=== PATIENT | female | born 1945 | race Caucasian/White ===

== ENCOUNTER → 2016-11-10 | Outpatient (CLI) | payer MEDICARE ==
--- NOTE | 2016-11-10 11:20 | MM ---
Reason for exam: additional evaluation requested from prior study. Last mammogram was performed 1 year ago. History: Patient is postmenopausal. Family history of breast cancer in daughter at age 38 and breast cancer in mother at age 70. Benign MG stereo VAD BX LT of the left breast, June 02, 2014. US discontinued breast bx LT of the left breast, June 02, 2014. Excisional biopsy of the right breast, 1996. Benign cyst aspiration of the left breast. Benign cyst aspiration of the right breast. Took hormonal contraceptives for 9 years beginning at age 21. Physical Findings: Nurse did not find any significant physical abnormalities on exam. MG 3D Diag Mammo W/Cad LINDA Bilateral CC and MLO view(s) were taken. Prior study comparison: November 05, 2015, bilateral MG 3d diag mammo w/cad LINDA. May 26, 2014, bilateral MG diagnostic mammo w CAD LINDA. The breast tissue is heterogeneously dense. This may lower the sensitivity of mammography. Finding: There are stable typically benign calcifications in both breasts. Previous mammotome biopsy in the left breast. No significant changes in finding since November 05, 2015 and May 26, 2014. These results were verbally communicated with the patient and result sheet given to the patient on 11/10/16. ASSESSMENT: Benign, BI-RAD 2 RECOMMENDATION: Routine screening mammogram of both breasts in 1 year.
== END | disposition home or self-care (01) ==
LOC: RADMAMWWP 08:13
PROVIDERS: ATTEND Surgery
DX: R92.2 Inconclusive mammogram (principal); Z80.3 Family history of malignant neoplasm of breast
CPT/HCPCS: G0204; G0279

== ENCOUNTER → 2016-11-10 | Outpatient (CLI) | payer MEDICARE ==
--- NOTE | 2016-11-10 16:32 | ECHOF ---
Referral Reason:I35. nonrtheumatic aortic valve stenosis MEASUREMENTS -------- HEIGHT: 157.5 cm WEIGHT: 83.9 kg BP: RVIDd: 2.3 cm (< 3.3) IVSd: 1.4 cm (0.6 - 1.1) LVIDd: 4.7 cm (3.9 - 5.3) LVPWd: 1.4 cm (0.6 - 1.1) IVSs: 1.7 cm LVIDs: 2.6 cm LVPWs: 1.7 cm LAESV Index (A-L): 30.81 ml/m Ao Diam: 3.0 cm (2.0 - 3.7) AV Cusp: 1.2 cm (1.5 - 2.6) LA Diam: 3.9 cm (2.7 - 3.8) MV EXCURSION: 11.800 mm (> 18.000) MV EF SLOPE: 41 mm/s (70 - 150) EPSS: 0.8 cm MV E Travis: 0.85 m/s MV DecT: 465 ms MV A Travis: 1.31 m/s MV E/A Ratio: 0.65 AV maxP.72 mmHg AV meanP.36 mmHg RAP: 5.00 mmHg RVSP: 21.17 mmHg FINDINGS -------- Sinus rhythm. This was a technically adequate study. There is moderate concentric left ventricular hypertrophy. Overall left ventricular systolic function is normal with, an EF between 60 - 65 %. The right ventricle is normal in size and function. LA is midly dilated 29-33ml/m2. The right atrium is normal in size. Aortic valve is trileaflet and is moderately thickened. Trace amount of aortic regurgitation. There is moderate aortic stenosis present. Peak/mean gradient across the Aortic Valve is 34.72mmHg / 20.36mmHg. Mild mitral annular calcification present. There is trace to mild mitral regurgitation. Trace tricuspid regurgitation present. There is no evidence of pulmonary hypertension. The right ventricular systolic pressure, as measured by Doppler, is 21.17mmHg. The pulmonic valve is normal. The aortic root size is normal. IVC Not well visulized. The pericardium is normal. There is no pericardial effusion. CONCLUSIONS -------- 1. Sinus rhythm. 2. There is trace to mild mitral regurgitation. 3. Trace tricuspid regurgitation present. 4. There is no evidence of pulmonary hypertension. 5. The right ventricular systolic pressure, as measured by Doppler, is 21.17mmHg. 6. The aortic root size is normal. 7. IVC Not well visulized. 8. There is no pericardial effusion. 9. This was a technically adequate study. 10. There is moderate concentric left ventricular hypertrophy. 11. Overall left ventricular systolic function is normal with, an EF between 60 - 65 %. 12. LA is midly dilated 29-33ml/m2. 13. Aortic valve is trileaflet and is moderately thickened. 14. Trace amount of aortic regurgitation. 15. Peak/mean gradient across the Aortic Valve is 34.72mmHg / 20.36mmHg. 16. Mild mitral annular calcification present. LITHOGRAPHIC PLATE MAKER: Maximiliano Kirkland RDCS
== END | disposition home or self-care (01) ==
LOC: RADECHMAIN 13:02
PROVIDERS: ATTEND Internal Medicine
DX: I34.0 Nonrheumatic mitral (valve) insufficiency (principal); I35.9 Nonrheumatic aortic valve disorder, unspecified
CPT/HCPCS: 93306

== ENCOUNTER → 2017-11-11 | Outpatient (CLI) | payer MEDICARE ==
--- NOTE | 2017-11-12 11:13 | MM ---
Reason for exam: additional evaluation requested from prior study. Last mammogram was performed 1 year ago. History: Patient is postmenopausal. Family history of breast cancer in daughter at age 38 and breast cancer in mother at age 70. Benign MG stereo VAD BX LT of the left breast, June 02, 2014. US discontinued breast bx LT of the left breast, June 02, 2014. Excisional biopsy of the right breast, 1996. Benign cyst aspiration of the left breast. Benign cyst aspiration of the right breast. Took hormonal contraceptives for 9 years beginning at age 21. Physical Findings: Nurse Summary: 1 x 1cm/0.5 x 1cm nodule in the right breast at 1 o'clock/11 o'clock (nurse ts). MG 3D Diag Mammo W/Cad LINDA Bilateral CC and MLO view(s) were taken. Prior study comparison: November 10, 2016, bilateral MG 3d diag mammo w/cad LINDA. November 05, 2015, bilateral MG 3d diag mammo w/cad LINAD. The breast tissue is heterogeneously dense. This may lower the sensitivity of mammography. There is chronic nodularity bilaterally. 2.4 x 2.0cm masses 11 and 1 o'clock slightly larger. Overlying palpable markers. A 1.2cm mass upper outer quadrant left breast has enlarged. These results were verbally communicated with the patient and result sheet given to the patient on 11/11/17. ASSESSMENT: Incomplete: need additional imaging evaluation, BI-RAD 0 RECOMMENDATION: Ultrasound of both breasts. Right entire. Left upper outer quadrant.
--- NOTE | 2017-11-12 11:15 | USB ---
Reason for exam: additional evaluation requested from abnormal screening. History: Patient is postmenopausal. Family history of breast cancer in daughter at age 38 and breast cancer in mother at age 70. Benign MG stereo VAD BX LT of the left breast, June 02, 2014. US discontinued breast bx LT of the left breast, June 02, 2014. Excisional biopsy of the right breast, 1996. Benign cyst aspiration of the left breast. Benign cyst aspiration of the right breast. Took hormonal contraceptives for 9 years beginning at age 21. US Breast Limited BILAT Right complete breast ultrasound includes all four quadrants, the retroareolar region and axilla. Finding demonstrates a 1.8 x 1.4 x 1.2cm cystic, palpable, benign lesion at 12 o'clock, a 1.8 x 1.4 x 1.2cm cystic lesion at 1 o'clock and a 1.6 x 1.6 x 1.1cm cystic, palpable, benign lesion at 10 o'clock. Left limited breast ultrasound including focal area of concern, retroareolar and axilla demonstrates a 1.2 x 0.6 x 0.6cm cystic lesion at 12 o'clock. These results were verbally communicated with the patient and result sheet given to the patient on 11/11/17. ASSESSMENT: Benign, BI-RAD 2 RECOMMENDATION: Follow-up diagnostic mammogram of both breasts in 1 year.
== END | disposition home or self-care (01) ==
LOC: RADMAMWWP 14:40
PROVIDERS: ATTEND Internal Medicine
DX: R92.8 Other abnormal and inconclusive findings on diagnostic imaging of breast (principal); Z80.3 Family history of malignant neoplasm of breast
CPT/HCPCS: 77066; 76642; G0279; 77062

== ENCOUNTER → 2017-11-16 | Outpatient (CLI) | payer MEDICARE ==
--- NOTE | 2017-11-17 10:34 | ECHOF ---
Referral Reason:I35.0 Nonrheumatic aortic (valve) stenosis MEASUREMENTS -------- HEIGHT: 157.5 cm WEIGHT: 83.9 kg BP: 179/79 RVIDd: 2.7 cm (< 3.3) IVSd: 1.3 cm (0.6 - 1.1) LVIDd: 4.2 cm (3.9 - 5.3) LVPWd: 1.1 cm (0.6 - 1.1) IVSs: 1.6 cm LVIDs: 2.7 cm LVPWs: 1.5 cm LA Diam: 2.7 cm (2.7 - 3.8) LAESV Index (A-L): 17.32 ml/m Ao Diam: 3.1 cm (2.0 - 3.7) AV Cusp: 1.6 cm (1.5 - 2.6) MV EXCURSION: 12.690 mm (> 18.000) MV EF SLOPE: 24 mm/s (70 - 150) EPSS: 0.7 cm MV E Travis: 1.01 m/s MV DecT: 272 ms MV A Travis: 1.26 m/s MV E/A Ratio: 0.80 AV maxP.01 mmHg AV meanP.35 mmHg FINDINGS -------- Sinus rhythm. This was a technically good study. The left ventricular size is normal. There is mild concentric left ventricular hypertrophy. Overa ll left ventricular systolic function is normal with, an EF between 60 - 65 %. The right ventricle is normal in size. Normal LA size by volume 22+/-6 ml/m2. The right atrium is normal in size. There is mild aortic valve sclerosis. There is mild aortic regurgitation. There is moderate aorti c stenosis present. Peak/mean gradient across the Aortic Valve is 42.01mmHg / 22.35mmHg. The mitral valve leaflets are mildly thickened. Mild mitral annular calcification present. The tricuspid valve appears structurally normal. Trace/mild (physiologic) pulmonic regurgitation. The aortic root size is normal. Normal inferior vena cava with normal inspiratory collapse consistent with estimated right atrial pre ssure of 5 mmHg. There is no pericardial effusion. CONCLUSIONS -------- 1. Sinus rhythm. 2. This was a technically good study. 3. The left ventricular size is normal. 4. There is mild concentric left ventricular hypertrophy. 5. Overall left ventricular systolic function is normal with, an EF between 60 - 65 %. 6. The right ventricle is normal in size. 7. Normal LA size by volume 22+/-6 ml/m2. 8. The right atrium is normal in size. 9. There is mild aortic valve sclerosis. 10. There is mild aortic regurgitation. 11. There is moderate aortic stenosis present. 12. Peak/mean gradient across the Aortic Valve is 42.01mmHg / 22.35mmHg. 13. The mitral valve leaflets are mildly thickened. 14. Mild mitral annular calcification present. 15. The tricuspid valve appears structurally normal. 16. Trace/mild (physiologic) pulmonic regurgitation. 17. The aortic root size is normal. 18. Normal inferior vena cava with normal inspiratory collapse consistent with estimated right atrial pressure of 5 mmHg. 19. There is no pericardial effusion. BATTERY CHECKER: Genna Logan RDCS
== END | disposition home or self-care (01) ==
LOC: RADECHMAIN 12:45
PROVIDERS: ATTEND Internal Medicine
DX: I35.0 Nonrheumatic aortic (valve) stenosis (principal); I35.8 Other nonrheumatic aortic valve disorders; I37.1 Nonrheumatic pulmonary valve insufficiency; I05.8 Other rheumatic mitral valve diseases
CPT/HCPCS: 93306

== ENCOUNTER → 2018-11-24 | Outpatient (CLI) | payer MEDICARE ==
--- NOTE | 2018-11-25 12:00 | ECHOF ---
Referral Reason:I35.0 Nonrheumatic aortic (valve) stenosis MEASUREMENTS -------- HEIGHT: 160.0 cm WEIGHT: 86.2 kg BP: RVIDd: 3.7 cm (< 3.3) IVSd: 1.9 cm (0.6 - 1.1) LVIDd: 2.8 cm (3.9 - 5.3) LVPWd: 1.9 cm (0.6 - 1.1) IVSs: 2.2 cm LVIDs: 1.7 cm LVPWs: 2.2 cm LAESV Index (A-L): 27.39 ml/m Ao Diam: 3.1 cm (2.0 - 3.7) AV Cusp: 1.0 cm (1.5 - 2.6) LA Diam: 3.9 cm (2.7 - 3.8) EPSS: 0.3 cm MV E Travis: 0.77 m/s MV DecT: 267 ms MV A Travis: 1.36 m/s MV E/A Ratio: 0.56 AV maxP.45 mmHg AV meanP.55 mmHg AR PHT: 426 ms RAP: 5.00 mmHg RVSP: 23.72 mmHg MV EF SLOPE: 72.30 mm/s (70 - 150) MV EXCURSION: 1.73 cm (> 18.000) FINDINGS -------- Sinus rhythm. This was a technically adequate study. The left ventricular size is normal. There is severe concentric left ventricular hypertrophy. Ove rall left ventricular systolic function is normal with, an EF between 60 - 65 %. The diastolic fill ing pattern is normal for the age of the patient. The right ventricle is mildly enlarged. Left atrium is normal size by volume. The right atrial size is normal. Interatrial and interventricular septum intact. There is [id number]-nafbhpnl aortic regurgitation. There is moderate aortic stenosis present. Peak/m krystin gradient across the valve is 40.45mmHg / 26.55mmHg. Moderate mitral annular calcification present. There is trace mitral regurgitation. Mild tricuspid regurgitation present. There is no evidence of pulmonary hypertension. The right v entricular systolic pressure, as measured by Doppler, is 23.72mmHg. Trace/mild (physiologic) pulmonic regurgitation. The aortic root size is normal. The inferior vena cava is mildly dilated. There is no pericardial effusion. CONCLUSIONS -------- 1. Sinus rhythm. 2. This was a technically adequate study. 3. The left ventricular size is normal. 4. There is severe concentric left ventricular hypertrophy. 5. Overall left ventricular systolic function is normal with, an EF between 60 - 65 %. 6. The diastolic filling pattern is normal for the age of the patient. 7. The right ventricle is mildly enlarged. 8. Left atrium is normal size by volume. 9. The right atrial size is normal. 10. Interatrial and interventricular septum intact. 11. There is yddw-fz-mmifcodv aortic regurgitation. 12. There is moderate aortic stenosis present. 13. Peak/mean gradient across the valve is 40.45mmHg / 26.55mmHg. 14. Moderate mitral annular calcification present. 15. There is trace mitral regurgitation. 16. Mild tricuspid regurgitation present. 17. There is no evidence of pulmonary hypertension. 18. The right ventricular systolic pressure, as measured by Doppler, is 23.72mmHg. 19. Trace/mild (physiologic) pulmonic regurgitation. 20. The aortic root size is normal. 21. The inferior vena cava is mildly dilated. 22. There is no pericardial effusion. DRAW FIRE OPERATOR: Kelly Mac [facility]
== END | disposition home or self-care (01) ==
LOC: RADECHMAIN 12:42
PROVIDERS: ATTEND Internal Medicine
DX: I08.2 Rheumatic disorders of both aortic and tricuspid valves (principal)
CPT/HCPCS: 93306

== ENCOUNTER → 2018-12-21 | Outpatient (CLI) | payer MEDICARE ==
--- NOTE | 2018-12-21 10:24 | MM ---
Reason for exam: additional evaluation requested from prior study. Last mammogram was performed 1 year and 1 month ago. History: Patient is postmenopausal. Family history of breast cancer in daughter at age 38 and breast cancer in mother at age 70. Benign MG stereo VAD BX LT of the left breast, June 02, 2014. US discontinued breast bx LT of the left breast, June 02, 2014. Excisional biopsy of the right breast, 1996. Benign cyst aspiration of the left breast. Benign cyst aspiration of the right breast. Took hormonal contraceptives for 9 years beginning at age 21. Physical Findings: Nurse did not find any significant physical abnormalities on exam. MG 3D Diag Mammo W/Cad LINDA Bilateral CC and MLO view(s) were taken. Prior study comparison: November 11, 2017, bilateral MG 3d diag mammo w/cad LINDA. November 10, 2016, bilateral MG 3d diag mammo w/cad LINDA. Finding: There are typically benign dystrophic, round, linear calcifications in both breasts. Previous mammotome biopsy in the left breast. There is a chronic nodularity bilaterally, some increased in size/appearance several levels bilaterally. These results were verbally communicated with the patient and result sheet given to the patient on 12/21/18. ASSESSMENT: Incomplete: need additional imaging evaluation, BI-RAD 0 RECOMMENDATION: Ultrasound of both breasts.
--- NOTE | 2018-12-21 10:31 | USB ---
Reason for exam: additional evaluation requested from abnormal screening. History: Patient is postmenopausal. Family history of breast cancer in daughter at age 38 and breast cancer in mother at age 70. Benign MG stereo VAD BX LT of the left breast, June 02, 2014. US discontinued breast bx LT of the left breast, June 02, 2014. Excisional biopsy of the right breast, 1996. Benign cyst aspiration of the left breast. Benign cyst aspiration of the right breast. Took hormonal contraceptives for 9 years beginning at age 21. US Breast BILAT Right complete breast ultrasound includes all four quadrants, the retroareolar region and axilla. Finding demonstrates a 8 x 5 x 16mm oval, cystic lesion at 3 o'clock, a 10 x 6 x 8mm oval, cystic lesion at 6 o'clock, a 8 x 7 x 11mm oval, cystic lesion at 7 o'clock, a 18 x 8 x 10mm irregular, solid, hypoechoic lesion at 10 o'clock for which a biopsy is advised and a 8 x 6 x 11mm lobular, solid, hypoechoic lesion at 5 o'clock for which a biopsy is considered. Left complete breast ultrasound includes all four quadrants, the retroareolar region and axilla. Finding demonstrates a 16 x 7 x 19mm lobular, cystic lesion at 12 o'clock, a 8 x 5 x 10mm lobular, mixed lesion at 3 o'clock, a 5 x 3 x 3mm mixed lesion at 9 o'clock and a 5 x 5 x 5mm hypoechoic lesion at 10 o'clock, probably debris filled cyst. Overall fibrocystic change. These results were verbally communicated with the patient and result sheet given to the patient on 12/21/18. ASSESSMENT: Suspicious, BI-RAD 4 RECOMMENDATION: Ultrasound core biopsy of the right breast. (1-2 sites) Called Dr. Mullen with mammographic findings. Biopsy scheduled for 01/12/19 at 12:20. PRELIMINARY REPORT CALLED AND FAXED TO DR. MULLEN ON 12/21/18.
--- NOTE | 2018-12-21 11:34 | BD ---
EXAMINATION TYPE: Axial Bone Density DATE OF EXAM: 12/21/2018 COMPARISON: 01.22.2016 DEXA bone scan CLINICAL HISTORY: 73 YR OLD FEMALE....ICD-10 CODE: Z78.0 POST MENOPAUSAL SYMPTOMS Height: 60.4 Weight: 197 FRAX RISK QUESTIONS: Glucocorticoids (More than 3mos): YES (Ex: prednisone, prednisolone, methylprednisolone, dexamethasone, and hydrocortisone). History of Fracture in Adulthood: YES Secondary Osteoporosis: YES 3. Menopause before 45: YES RISK FACTORS HISTORY OF: Hip Fracture RT HIP...WITH SUR Surgery to RT HIP...2016 Postmenopausal woman: HYST AT AGE 41 Lost more than 2 inches in height since high school: YES Hyperparathyroidism: NO Adrenal Insufficiency: NO MEDICATIONS: Prednisone or other steroids: ADVAIR, SINGULAIR, PREDNISONE, ASTHMA...FOR LONG TIME Additional Medications: BP MEDS, DIABETES INSIPITUS CALCIUM AND VIT D, TUMS Additional History: HYPERTENSION, RT HIP FX AND SURGICAL REPAIR, EXAM MEASUREMENTS: Bone mineral densitometry was performed using the [employer] [facility] System. Bone mineral density as measured about the Lumbar spine is: ----- L1-L4(G/cm2): 1.279 T Score Values are as follows: ----- L1: 0.2 ----- L2: -0.1 ----- L3: 2.0 ----- L4: 0.8 ----- L1-L4: 0.8 Bone mineral density has: Increased 15.8% since study of: 01.22.2016 Bone mineral density about the L hip (g/cm2): 0.800 T Score values are as follows: -----L Neck: -1.3 -----L Total: -1.7 Bone mineral density has: Increased 3.5% since study of: 01.22.2016 FRAX%s: THERE IS A 21.7% CHANCE FOR A MAJOR OSTEOPOROTIC FX AND A 3.3% FOR HIP....PROBABILITY FOR F X IN 10 YRS TIME IMPRESSION: Osteopenia (T Score between -2.5 and -1) in the left hip remains present. There remains slightly increased risk of fracture and the patient may be considered for treatment. Re-Screen 2-5 years. NOTE: T-SCORE=SD OF THE YOUNG ADULT MEAN.
== END | disposition home or self-care (01) ==
LOC: RADMAMWWP 08:00
PROVIDERS: ATTEND Internal Medicine
DX: N60.02 Solitary cyst of left breast (principal); N60.01 Solitary cyst of right breast; R92.8 Other abnormal and inconclusive findings on diagnostic imaging of breast; M85.88 Other specified disorders of bone density and structure, other site; Z78.0 Asymptomatic menopausal state
CPT/HCPCS: 77080; 77066; 76641; G0279; 77062

== ENCOUNTER → 2019-01-12 | Day surgery (SDC) | payer MEDICARE ==
[2019-01-12 11:40] VITALS: RESP 12
[2019-01-12 13:04] VITALS: BP 152/99; PULSE 83; TEMP 98.6
--- NOTE | 2019-01-12 13:41 | USB ---
EXAMINATION TYPE: US biopsy breast VAD RT, US biopsy breast add'l VAD RT, MG diagnostic mammo RT wo CAD DATE OF EXAM: 01/12/2019 CLINICAL HISTORY: R92.8 Abnormal Mammogram. TECHNIQUE: Ultrasound guided core biopsy of right breast. COMPARISON: 12/21/2018 breast ultrasound FINDINGS: The procedure of ultrasound guided core biopsy was explained to the patient. Benefits, alternatives, and risks were discussed. An informed consent was then obtained. Preprocedural timeout was performed. Site A: The patient was placed in supine positioning for imaging and for the procedure. The overlying skin was prepped and draped in usual sterile fashion. 10 cc of 1% lidocaine was used as anesthetic into the skin and subcutaneous tissue up to the 1.8 cm deep hypoechoic mass at the 10:00 position right breast. Under ultrasound guidance, a 12-gauge vacuum assisted biopsy gun device was used to obtain 6 core samples. Following this, a ribbon-shaped biopsy marker was left in mass. Site B: The patient was placed in supine positioning for imaging and for the procedure. The overlying skin was prepped and draped in usual sterile fashion. 10 cc of 1% lidocaine was used as anesthetic into the skin and subcutaneous tissue up to the 1.1 cm mass at the 5:00 position in the right. Under ultrasound guidance, a 12-gauge vacuum assisted biopsy gun device was used to obtain 4 core samples. Following this, a wing shaped biopsy marker was left in mass. Postprocedural mammogram demonstrates appropriate placement of the wing-shaped marker and visualization of the ribbon-shaped biopsy marker on the MLO view only despite obtaining an additional exaggerated CC. The patient tolerated the procedure well without any immediate complication. The patient was kept in the radiology department for short stay after the procedure and then discharged home in stable condition. IMPRESSION: Successful, uncomplicated 2 site ultrasound guided core biopsy of a 1.8 cm intermediate suspicion for at the 10:00 position in the right breast and a 1.1 cm low suspicion mass at the 5:00 position in the right breast, full pathology results to follow. Pathology Results: Benign A. RIGHT BREAST, TEN O'CLOCK, ULTRASOUND GUIDED CORE BIOPSY: Benign breast tissue with prominent stromal fibrosis. B. RIGHT BREAST, FIVE O'CLOCK, ULTRASOUND GUIDED CORE BIOPSY: Fibrocystic changes including sclerosing adenosis with calcifications, columnar cell change, cysts, fibrosis and mild usual type ductal hyperplasia. See note. Recommendation Follow up ultrasound of the right breast in 6 months. LEONELD
== END ==
LOC: RADUSWWP 11:19
PROVIDERS: ATTEND Internal Medicine
DX: N60.11 Diffuse cystic mastopathy of right breast (principal); N60.21 Fibroadenosis of right breast
CPT/HCPCS: 88305; 88342; 88341; 77065; 19083; 19084; A4648; J2001

== ENCOUNTER → 2019-11-22 | Outpatient (CLI) | payer MEDICARE ==
--- NOTE | 2019-11-22 12:12 | ECHOF ---
Referral Reason:I35.0 Nonhuematic valve stenosis, I51.7 cardiomega MEASUREMENTS -------- HEIGHT: 154.9 cm WEIGHT: 86.2 kg BP: 180/79 RVIDd: 3.1 cm (< 3.3) IVSd: 1.3 cm (0.6 - 1.1) LVIDd: 3.7 cm (3.9 - 5.3) LVPWd: 1.2 cm (0.6 - 1.1) IVSs: 1.6 cm LVIDs: 2.4 cm LVPWs: 1.6 cm LA Diam: 3.4 cm (2.7 - 3.8) LAESV Index (A-L): 19.46 ml/m Ao Diam: 2.9 cm (2.0 - 3.7) AV Cusp: 1.6 cm (1.5 - 2.6) MV EXCURSION: 14.577 mm (> 18.000) MV EF SLOPE: 25 mm/s (70 - 150) EPSS: 0.5 cm MV E Travis: 0.97 m/s MV DecT: 465 ms MV A Travis: 1.49 m/s MV E/A Ratio: 0.65 AV maxP.69 mmHg AV meanP.64 mmHg AR PHT: 661 ms RAP: 5.00 mmHg RVSP: 33.43 mmHg FINDINGS -------- Sinus rhythm. This was a technically good study. The left ventricular size is normal. There is mild concentric left ventricular hypertrophy. Overa left ventricular systolic function is normal with, an EF between 60 - 65 %. The right ventricle is normal in size. Normal LA size by volume 22+/-6 ml/m2. The right atrium is normal in size. Interatrial and interventricular septum intact. There is moderate aortic valve sclerosis. There is ocif-xe-tdfhelxn aortic regurgitation. There i s moderate aortic stenosis present. Peak/mean gradient across the Aortic Valve is 45.69mmHg / 24.64 mmHg. The mitral valve leaflets are mildly thickened. Mild mitral annular calcification present. Mild m itral regurgitation is present. The peak and mean MV gradients are 12.33mmHg 4.53mmHg as measured by doppler. Mild mitral stenosis. Mild tricuspid regurgitation present. Right ventricular systolic pressure is normal at < 35 mmHg. Trace/mild (physiologic) pulmonic regurgitation. The aortic root size is normal. Normal inferior vena cava with normal inspiratory collapse consistent with estimated right atrial pre ssure of 5 mmHg. There is no pericardial effusion. CONCLUSIONS -------- 1. The left ventricular size is normal. 2. There is mild concentric left ventricular hypertrophy. 3. Overall left ventricular systolic function is normal with, an EF between 60 - 65 %. 4. There is moderate aortic valve sclerosis. 5. There is qqeo-xw-qvhrzczd aortic regurgitation. 6. There is moderate aortic stenosis present. 7. Peak/mean gradient across the Aortic Valve is 45.69mmHg / 24.64mmHg. 8. The mitral valve leaflets are mildly thickened. 9. Mild mitral annular calcification present. 10. Mild mitral regurgitation is present. 11. The peak and mean MV gradients are 12.33mmHg 4.53mmHg as measured by doppler. 12. Mild mitral stenosis. 13. Mild tricuspid regurgitation present. 14. Trace/mild (physiologic) pulmonic regurgitation. 15. There is no pericardial effusion. TICKET TAKER: Genna Logan RDCS
== END | disposition home or self-care (01) ==
LOC: RADECHMAIN 08:30
PROVIDERS: ATTEND Internal Medicine
DX: I08.3 Combined rheumatic disorders of mitral, aortic and tricuspid valves (principal); I37.1 Nonrheumatic pulmonary valve insufficiency
CPT/HCPCS: 93306

== ENCOUNTER 2020-01-16 11:22 | Day surgery (SDC) | payer MEDICARE ==
[2020-01-12 14:34] VITALS: BMI 34.7
[2020-01-16] MEDS ORDERED: LACTATED RINGERS 1,000 ML IV ONE (11:41)
[2020-01-16 11:47] VITALS: TEMP 98.5
[2020-01-16] MEDS ORDERED: PROPOFOL 10 MG/ML 20 ML VIAL IV ONE (12:06)
--- NOTE | 2020-01-16 12:45 | P.PCN ---
Date of Procedure: 01/16/20 Description of Procedure: BRIEF HISTORY: Patient is a 74 -year-old female presenting for outpatient colonoscopy for evaluation of family history of colon cancer. Last colonoscopy 5 years ago per her recollection. No change in bowel habits or blood per rectum. PROCEDURE PERFORMED: Colonoscopy with polypectomy. PREOPERATIVE DIAGNOSIS: Family history of colon cancer, last colonoscopy 5 years ago. ESTIMATED BLOOD LOSS: Minimal. IV sedation per Anesthesia. PROCEDURE: After informed consent was obtained, the patient, was brought into the endoscopy unit. IV sedation was administered by Anesthesia under continuous monitoring. Digital rectal examination was normal. Initially the Olympus CF-190 flexible video colonoscope was then inserted in the rectum, gradually advanced into the cecum without any difficulty. Careful examination was performed as the scope was gradually being withdrawn. Ileocecal valve and the appendiceal orifice were visualized and appeared normal. Prep was excellent. Mucosa of the cecum, ascending colon, transverse colon, descending colon, sigmoid colon, and rectum appeared normal. Multiple small and large mouth diverticula noted in the left colon. 2 diminutive 2-3 mm cecal polyps removed with cold forcep polypectomy. Retroflexion was performed in the rectum and no lesions were seen. The patient tolerated the procedure well. IMPRESSION: 2 diminutive cecal polyps removed with cold forcep polypectomy. Moderate left colonic diverticulosis. RECOMMENDATIONS: Findings of this examination were discussed with the patient. Okay to resume diet. Okay to resume medications. Await pathology from polypectomy. Would recommend repeat colonoscopy in 5 years for family history of colon cancer.
[2020-01-16 13:12] VITALS: PULSE 85; RESP 16
[2020-01-16 13:13] VITALS: BP 137/82
== END 2020-01-16 13:21 | disposition home or self-care (01) ==
LOC: ORWHC2ENDO 11:22
PROVIDERS: ATTEND Internal Medicine
DX: Z12.11 Encounter for screening for malignant neoplasm of colon (principal); K63.5 Polyp of colon; K57.30 Diverticulosis of large intestine without perforation or abscess without bleeding; I10 Essential (primary) hypertension; J45.909 Unspecified asthma, uncomplicated; Z90.710 Acquired absence of both cervix and uterus; Z98.51 Tubal ligation status; Z98.890 Other specified postprocedural states; Z80.0 Family history of malignant neoplasm of digestive organs; Z79.82 Long term (current) use of aspirin; Z79.899 Other long term (current) drug therapy; Z91.09 Other allergy status, other than to drugs and biological substances
CPT/HCPCS: 88305; 45380; J2704

== ENCOUNTER → 2020-02-07 | Outpatient (CLI) | payer MEDICARE ==
--- NOTE | 2020-02-07 09:11 | MM ---
Reason for exam: additional evaluation requested from prior study. Last mammogram was performed 1 year and 1 month ago. History: Patient is postmenopausal. Family history of breast cancer in daughter at age 38 and breast cancer in mother at age 70. Benign US biopsy breast VAD RT of the right breast, January 12, 2019. Benign US biopsy breast add'l VAD RT of the right breast, January 12, 2019. Benign MG stereo VAD BX LT of the left breast, June 02, 2014. US discontinued breast bx LT of the left breast, June 02, 2014. Excisional biopsy of the right breast, 1996. Benign cyst aspiration of the left breast. Benign cyst aspiration of the right breast. Took hormonal contraceptives for 9 years beginning at age 21. Physical Findings: Nurse did not find any significant physical abnormalities on exam. MG 3D Diag Mammo W/Cad LINDA Bilateral CC and MLO view(s) were taken. Prior study comparison: January 12, 2019, right breast MG diagnostic mammo RT wo CAD. December 21, 2018, bilateral MG 3d diag mammo w/cad LINDA. The breast tissue is heterogeneously dense. This may lower the sensitivity of mammography. Previous mammotome biopsy in the right and left breast. Scattered calcifications are unchanged. Bilateral nodularity, some of which has decreased in size, some of which has increased. These results were verbally communicated with the patient and result sheet given to the patient on 02/07/20. ASSESSMENT: Incomplete: need additional imaging evaluation, BI-RAD 0 RECOMMENDATION: Ultrasound of both breasts.
--- NOTE | 2020-02-07 09:13 | USB ---
Reason for exam: additional evaluation requested from abnormal screening. History: Patient is postmenopausal. Family history of breast cancer in daughter at age 38 and breast cancer in mother at age 70. Benign US biopsy breast VAD RT of the right breast, January 12, 2019. Benign US biopsy breast add'l VAD RT of the right breast, January 12, 2019. Benign MG stereo VAD BX LT of the left breast, June 02, 2014. US discontinued breast bx LT of the left breast, June 02, 2014. Excisional biopsy of the right breast, 1996. Benign cyst aspiration of the left breast. Benign cyst aspiration of the right breast. Took hormonal contraceptives for 9 years beginning at age 21. US Breast BILAT Right complete breast ultrasound includes all four quadrants, the retroareolar region and axilla. Finding demonstrates a 11 x 7 x 10mm cystic lesion at 12 o'clock and a 7 x 4 x 9mm hypoechoic lesion at 4 o'clock versus 12 x 9 x 5mm on 01/12/19, benign. Left complete breast ultrasound includes all four quadrants, the retroareolar region and axilla. Finding demonstrates a 13 x 7 x 10mm cystic lesion at 12 o'clock, a 13 x 10 x 15mm cystic lesion at 1 o'clock and a 4 x 4 x 4mm mixed lesion at 9 o'clock, cyst with debris, benign. These results were verbally communicated with the patient and result sheet given to the patient on 02/07/20. ASSESSMENT: Probably benign, BI-RAD 3 RECOMMENDATION: Follow-up diagnostic mammogram of both breasts in 1 year.
== END | disposition home or self-care (01) ==
LOC: RADMAMWWP 07:28
PROVIDERS: ATTEND Internal Medicine
DX: R92.8 Other abnormal and inconclusive findings on diagnostic imaging of breast (principal); Z85.3 Personal history of malignant neoplasm of breast
CPT/HCPCS: 77066; 76641; G0279; 77062

== ENCOUNTER → 2021-01-03 | Outpatient (CLI) | payer MEDICARE ==
--- NOTE | 2021-01-03 18:32 | BD ---
EXAMINATION TYPE: Axial Bone Density DATE OF EXAM: 01/03/2021 COMPARISON: 2019 CLINICAL HISTORY: Postmenopausal screening Height: 61 Weight: 194.1 FRAX RISK QUESTIONS: Alcohol (3 or more units per day): no Family History (Parent hip fracture): no Glucocorticoids (More than 3mos): no (Ex: prednisone, prednisolone, methylprednisolone, dexamethasone, and hydrocortisone). History of Fracture in Adulthood: yes Secondary Osteoporosis: 1. Type 1 Diabetes: no 2. Hyperthyroidism: no 3. Menopause before 45: yes 4. Malnutrition: no 5. Chronic liver disease: no Rheumatoid Arthritis: no Current Tobacco Use: no RISK FACTORS HISTORY OF: Hip Fracture (Right/Left): right When: 2016 Surgery to Spine/Hip(right/left)/Wrist (right/left): right femur When: 2016 Family History of Osteoporosis: no Active: yes Diet low in dairy products/other sources of calcium: yes Postmenopausal woman: yes Lost more than 2 inches in height since high school: yes MEDICATIONS: Additional History: EXAM MEASUREMENTS: Bone mineral densitometry was performed using the [employer] System. Bone mineral density as measured about the Lumbar spine is: ----- L1-L4(G/cm2): 1.235 T Score Values are as follows: ----- L2: 1.0 ----- L3: 0.2 ----- L4: 0.3 ----- L1-L4: 0.5 Bone mineral density has: decreased -5.0 % since study of: 12.21.2018 Bone mineral density about the L hip (g/cm2): 0.890 T Score values are as follows: -----L Neck: -1.1 -----L Total: -1.1 Bone mineral density has: increased 8.4 % since study of: 12.21.2018 IMPRESSION: Osteopenia (T Score between -2.5 and -1). There is slightly increased risk of fracture and the patient may be considered for treatment. Re-Screen 2-5 years. NOTE: T-SCORE=SD OF THE YOUNG ADULT MEAN.
== END | disposition home or self-care (01) ==
LOC: RADBDWWP 09:21
PROVIDERS: ATTEND Internal Medicine
DX: M85.852 Other specified disorders of bone density and structure, left thigh (principal); Z78.0 Asymptomatic menopausal state
CPT/HCPCS: 77080

== ENCOUNTER → 2021-01-09 | Outpatient (CLI) | payer MEDICARE ==
--- NOTE | 2021-01-10 17:02 | ECHOF ---
Referral Reason:I35.0 Nonrheumatic aortic valve stenosis MEASUREMENTS -------- HEIGHT: 154.9 cm WEIGHT: 88.0 kg BP: RVIDd: 3.2 cm (< 3.3) IVSd: 1.5 cm (0.6 - 1.1) LVIDd: 3.3 cm (3.9 - 5.3) LVPWd: 1.8 cm (0.6 - 1.1) IVSs: 1.9 cm LVIDs: 1.8 cm LVPWs: 2.3 cm LAESV Index (A-L): 34.80 ml/m MV EXCURSION: 14.703 mm (> 18.000) MV EF SLOPE: 52 mm/s (70 - 150) EPSS: 0.3 cm MV E Travis: 1.26 m/s MV DecT: 363 ms MV A Travis: 1.64 m/s MV E/A Ratio: 0.77 AV maxP.30 mmHg AV meanP.04 mmHg AR PHT: 335 ms RAP: 5.00 mmHg RVSP: 34.01 mmHg FINDINGS -------- Sinus rhythm. This was a technically adequate study. The left ventricular size is normal. There is moderate concentric left ventricular hypertrophy. O verall left ventricular systolic function is normal with, an EF between 55 - 60 %. Left ventricular fillimg pressure cannot be estimated due to severe mitral annular calcification. The right ventricle is normal in size. LA is moderately dilated 34-39 ml/m2 The right atrial size is normal. Interatrial and interventricular septum intact. There is mild aortic regurgitation. There is amefcunp-qr-zaimtu aortic stenosis present. Severe mitral annular calcification present. Mild mitral regurgitation is present. Woao-yi-mrdnuk te mitral stenosis , with a MVA of 2.0cm (by PHT) Mild tricuspid regurgitation present. There is no evidence of pulmonary hypertension. The right v entricular systolic pressure, as measured by Doppler, is 34.01mmHg. There is no pulmonic regurgitation present. The aortic root size is normal. IVC Not well visulized. There is no pericardial effusion. CONCLUSIONS -------- 1. The left ventricular size is normal. 2. There is moderate concentric left ventricular hypertrophy. 3. Overall left ventricular systolic function is normal with, an EF between 55 - 60 %. 4. Left ventricular fillimg pressure cannot be estimated due to severe mitral annular calcification. 5. LA is moderately dilated 34-39 ml/m2 6. There is mild aortic regurgitation. 7. There is isqqocqj-aa-ahaarh aortic stenosis present. 8. Severe mitral annular calcification present. 9. Mild mitral regurgitation is present. 10. Qluv-ob-zdpnrvat mitral stenosis. 11. , with a MVA of 2.0cm (by PHT) 12. Mild tricuspid regurgitation present. GROUP PROGRAM MANAGER: Kelly Mac RDCS
== END | disposition home or self-care (01) ==
LOC: RADECHMAIN 14:28
PROVIDERS: ATTEND Internal Medicine
DX: I35.0 Nonrheumatic aortic (valve) stenosis (principal)
CPT/HCPCS: 93306

== ENCOUNTER → 2021-02-20 | Outpatient (CLI) | payer MEDICARE ==
--- NOTE | 2021-02-20 09:16 | MM ---
Reason for exam: additional evaluation requested from prior study. Last mammogram was performed 1 year ago. History: Patient is postmenopausal. Family history of breast cancer in daughter at age 38 and breast cancer in mother at age 70. Benign US biopsy breast VAD RT of the right breast, January 12, 2019. Benign US biopsy breast add'l VAD RT of the right breast, January 12, 2019. Benign MG stereo VAD BX LT of the left breast, June 02, 2014. US discontinued breast bx LT of the left breast, June 02, 2014. Excisional biopsy of the right breast, 1996. Benign cyst aspiration of the left breast. Benign cyst aspiration of the right breast. Took hormonal contraceptives for 9 years beginning at age 21. Physical Findings: Nurse did not find any significant physical abnormalities on exam. MG 3D Diag Mammo W/Cad LINDA Bilateral CC and MLO view(s) were taken. Prior study comparison: February 07, 2020, bilateral MG 3d diag mammo w/cad LINDA. January 12, 2019, right breast MG diagnostic mammo RT wo CAD. November 11, 2017, bilateral MG 3d diag mammo w/cad LINDA. The breast tissue is heterogeneously dense. This may lower the sensitivity of mammography. Previous mammotome biopsy in the left and right breast x 2. Fluctuating nodularity most of which is smaller. Bilateral calcifications are similar. Continued follow up recommended in 1 year. These results were verbally communicated with the patient and result sheet given to the patient on 02/20/21. ASSESSMENT: Probably benign, BI-RAD 3 RECOMMENDATION: Follow-up diagnostic mammogram of both breasts in 1 year.
== END ==
LOC: RADMAMWWP 07:35
PROVIDERS: ATTEND Internal Medicine
DX: R92.2 Inconclusive mammogram (principal); Z80.3 Family history of malignant neoplasm of breast
CPT/HCPCS: 77066; G0279; 77062

== ENCOUNTER → 2022-03-24 | Outpatient (CLI) | payer MEDICARE ==
--- NOTE | 2022-03-24 10:50 | MM ---
Reason for Exam: Additional evaluation requested from prior study. Last mammogram was performed 1 year(s) and 1 month(s) ago. Patient History: Menarche at age 13. First Full-Term at age 25. Hysterectomy at age 41. Postmenopausal. Hormonal Contraceptives for 9 years from age 21 until age 30. Benign Cyst Aspiration on the right side. Benign Cyst Aspiration on the left side. 1996, Excisional Biopsy on the Right side. 01/12/2019, Benign Core Biopsy on the right side. 01/12/2019, Benign Core Biopsy on the right side. 06/02/2014, Benign Core Biopsy on the left side. 06/02/2014, US discontinued breast bx LT on the left side. Daughter had breast cancer, age 38. Mother had breast cancer, age 70. Risk Values: Zeinab 5 year model risk: 10.5%. NCI Lifetime model risk: 21.2%. Prior Study Comparison: 12/21/2018 Bilateral Diagnostic Mammogram, [facility]. 01/12/2019 Right Diagnostic Mammogram, [facility]. 02/07/2020 Bilateral Diagnostic Mammogram, [facility]. 02/20/2021 Bilateral Diagnostic Mammogram, [facility]. Tissue Density: The breast tissue is heterogeneously dense. This may lower the sensitivity of mammography. Findings: Analyzed By CAD. Scattered and loosely grouped calcifications bilaterally are redemonstrated. There are biopsy clips in the bilateral breasts again seen. Circumscribed masses near 1.0 cm bilaterally are grossly unchanged from prior mammograms on background dense tissue . No suspicious new distortion or worrisome group of microcalcification bilaterally. Overall Assessment: Benign, BI-RAD 2 Management: Screening Mammogram of both breasts in 1 year. A clinical breast exam by your physician is recommended on an annual basis and results should be correlated with mammographic findings. This exam should not preclude additional follow-up of suspicious palpable abnormalities. Results were given to the patient verbally at the time of exam. Electronically signed and approved by: Jose Antonio Camacho M.D.
== END | disposition home or self-care (01) ==
LOC: RADMAMWWP 10:14
PROVIDERS: ATTEND Family Medicine
DX: R92.8 Other abnormal and inconclusive findings on diagnostic imaging of breast (principal); Z78.0 Asymptomatic menopausal state; Z80.3 Family history of malignant neoplasm of breast
CPT/HCPCS: 77066; G0279; 77062

== ENCOUNTER → 2022-03-25 | Outpatient (CLI) | payer MEDICARE ==
[2022-03-25 14:29] LABS: HCT 33.4 % (37.2-46.3); HGB 10.7 g/dL (12.0-15.0); MCH 29.4 pg (27.0-32.0); MCV 91.8 fL (80.0-97.0); Mean Platelet Volume 10.3 fL (9.5-12.2); NRBC Per 100 WBC 0 /100 WBCS (0.0-0.0); Platelet Count 268 X 10*3/uL (140-440); RBC 3.64 X 10*6/uL (4.10-5.20); WBC 7.01 X 10*3/uL (4.50-10.00)
[2022-03-25 14:58] LABS: African American GFR (CKD) 83.6 (60.0-200.0); Anion Gap 11.4 mmol/L (10.00-18.00); Blood Urea Nitrogen 8.5 mg/dL (9.0-27.0); Carbon Dioxide 22.6 mmol/L (20.0-27.5); Non-African American GFR(CKD) 72.1 (60.0-200.0); Potassium 4.3 mmol/L (3.5-5.5)
== END | disposition home or self-care (01) ==
LOC: LABPAT 10:27
PROVIDERS: ATTEND Internal Medicine Interventional Cardiology
DX: Z01.812 Encounter for preprocedural laboratory examination (principal); I35.0 Nonrheumatic aortic (valve) stenosis
CPT/HCPCS: 80051; 82565; 84520; 85027

== ENCOUNTER 2022-04-04 07:17 | Day surgery (SDC) | payer MEDICARE ==
[~2022-04-04 07:17] MED LIST: ALPRAZolam 0.25 MG TAB PO PRN; ALPRAZolam 0.5 MG TAB PO PRN; ASPIRIN 325 MG TAB PO STA; ATORVASTATIN 80 MG TAB PO STA; HEPARIN SODIUM,PORCINE 10,000 UNIT in SODIUM CHLORIDE 0.9% 1,000 ML IRRIGATION PRN; HEPARIN SODIUM,PORCINE 2,500 UNIT in SODIUM CHLORIDE 0.9% 250 ML IRRIGATION PRN; NITROGLYCERIN SL TABS 0.4 MG TAB SUBLINGUAL PRN; SODIUM CHLORIDE 0.9% 1,000 ML in EMPTY BAG 1 BAG IV SCH
[2022-04-04 07:49] VITALS: RESP 18; TEMP 98.5
[2022-04-04] MEDS ORDERED: fentaNYL (PF) 50 MCG/ML 2 ML AMP ONE (08:37)
[2022-04-04] MEDS: BENZOCAINE SPRAY 1 CAN MUCOUS MEM ONE ×2 (08:44→08:58)
[2022-04-04] MEDS ORDERED: IV FLUID CONTINUATION 1,000 ML IV ONE (08:45)
[2022-04-04] MEDS ORDERED: MIDAZOLAM 2 MG/2 ML VIAL IV ONE ×2 (08:58→11:22)
[2022-04-04] MEDS ORDERED: fentaNYL (PF) 50 MCG/ML 2 ML AMP IV ONE (08:58)
[2022-04-04] MEDS: MIDAZOLAM 2 MG/2 ML VIAL IV ONE ×2 (09:01→09:03)
--- NOTE | 2022-04-04 09:26 | P.PCN ---
Date of Procedure: 04/04/22 Operative Findings: TRANSESOPHAGEAL ECHOCARDIOGRAM PHARMACY OPERATIONS SPECIALIST: KEYANA GARNER MD, RPVI INDICATION: This is a 76-year-old female patient who sees Dr. Bennett irregularly was diagnosis and he was aortic stenosis. The transesophageal echocardiogram for further clarification of the severity of aortic stenosis and the morphology of the aortic valve as well. SEDATION: Conscious sedation COMPLICATION: None LEVEL OF SEDATION Moderate to sedation length of 12 minutes PROCEDURE DESCRIPTION: After obtaining an informed consent, the patient was brought to transesophageal echocardiogram room. Pulse oximetry and heart monitors were attached to the patient. The patient throat was sprayed using lidocaine. The patient was turned into left lateral position. After that a bite guard was placed. After an appropriate conscious sedation was initiated, the transesophageal echocardiogram was advanced through a bite guard into the mid esophagus. A 2-D echocardiogram images, color Doppler images, continuous wave images, pulse-wave images, of various cardiac structure were performed. After that the transesophageal echocardiogram probe was advanced into the stomach and fixed to obtain transgastric view was. The probe was brought into the mid esophagus. Inter-atrial septum was interrogated using 2D images, color Doppler images, and then contrast study. After that transesophageal echocardiogram was withdrawn out and upon withdrawing the descending thoracic aorta all the way up to the arch was evaluated. FINDING: The left ventricular dimension and systolic function appeared to be within normal limits. Ejection fraction appears to be in the range of 55-60% with mild concentric left ventricular hypertrophy. The right ventricle appeared to be mildly dilated with normal function. The left atrium appears to be dilated. Left atrial appendage appeared to be free from any thrombus. The interatrial septum appeared to be intact. The aortic valve is very thickened and calcified and appeared to be trileaflet valve with evidence of severe aortic stenosis with a mean gradient of 44 mmHg by transgastric view and peak gradient of 87 mmHg. The peak systolic velocities definitely above 4 m/s. The mitral valve appeared to be also mildly thickened with evidence of moderate mitral regurgitation. There is no evidence of pericardial effusion identified. CONCLUSION: 1. Trileaflet aortic valve with evidence of aortic sclerosis and severe aortic stenosis. The mean gradient is 44 mmHg. Peak systolic velocity is above 4 m/s. The aortic valve area by planimetry is 0.5 cm 2. Normal left ventricular dimension and systolic function. There is mild concentric left ventricular hypertrophy. The LV EF is 55-60% 3. Thickened anterior and posterior mitral leaflets was evidence of moderate mitral regurgitation 4. Normal right ventricular dimension and systolic function 5. Normal tricuspid valve and pulmonic valve 6. No evidence of pericardial effusion
[2022-04-04] MEDS ORDERED: LIDOCAINE 1% INJ 10MG/ML (5 ML VIAL-PF) SQ ONE (11:24)
[2022-04-04] MEDS ORDERED: HEPARIN SODIUM 1,000 UN/ML (10ML VL) IV ONE (11:27)
[2022-04-04] MEDS ORDERED: VERAPAMIL SYRINGE (5 MG/10 ML) INTRAARTER ONE (11:27)
[2022-04-04] MEDS ORDERED: IOPAMIDOL-370 100ML BTL INJ ONE (11:40)
[2022-04-04] MEDS ORDERED: SODIUM CHLORIDE 0.9% 1,000 ML IV SCH (12:00)
[2022-04-04] MEDS ORDERED: SODIUM CHLORIDE 0.9% 500 ML 500 ML IV ONE (14:00)
[2022-04-04 15:36] VITALS: BP 132/86; PULSE 74
--- NOTE | 2022-04-04 16:01 | CC ---
CARDIAC CATHETERIZATION REPORT DATE OF SERVICE: 04/04/2022. PROCEDURES PERFORMED: Left heart catheterization and coronary angiography. PERFORMED BY: Dr. Migdalia Bennett. Moderate conscious sedation time was 20 minutes. The patient was administered Versed. Oxygen saturation, hemodynamics, and EKG were monitored closely. CLINICAL INFORMATION: Ms. Sabina Rayo is a 76-year-old lady with a history of aortic stenosis that has progressively gotten worse. She has hypertension, hyperlipidemia, and bronchial asthma. She has been having increasing shortness of breath and echo revealing worsening gradient with preserved LV function. There was also moderate pulmonary hypertension. She was advised coronary angiography and transesophageal echo. Transesophageal echo revealed severe aortic stenosis. PROCEDURE NOTE: Under local anesthesia and strict aseptic precautions, a 6-[place] introducer was placed in the right radial artery. Using JL3.5 and JR4 catheters, I performed coronary angiography, and the same right catheter was used to cross the valve, and I checked LV pressures with a pullback gradient. The patient tolerated the procedure well without complication. A TR band was applied, and saturation in the fingers of the right hand was 94%. Moderate conscious sedation time was 20 minutes. CARDIAC CATHETERIZATION FINDINGS: The left ventricular end-diastolic pressure was about 11 to 12 mmHg. There was a gradient of 33 mmHg, which is a mean gradient on pullback. This suggests a severe aortic stenosis. CORONARY ANGIOGRAPHY FINDINGS: RIGHT CORONARY ARTERY: This is a large vessel, good caliber, good distribution, minor irregularities, distally bifurcates into PDA and PLV. No significant disease. LEFT MAIN CORONARY ARTERY: A very short vessel, immediately bifurcates into LAD and circumflex. No significant disease. LEFT ANTERIOR DESCENDING CORONARY ARTERY: Good-caliber vessel, extends along the anterior wall, gives off diagonal branch in the mid portion and several small septal branches, runs all the way to the apex, has no significant disease. Distal LAD has mild tapering to about 30% to 40% LEFT POSTERIOR CIRCUMFLEX CORONARY ARTERY: Technically nondominant vessel, good caliber, good distribution, gives a single obtuse marginal that subdivides into 3 branches, and then there is an AV groove branch. No significant disease in the circumflex system. FINAL IMPRESSION: This patient has a right-dominant system. No significant disease in the right coronary artery or circumflex. Mild diffuse disease in the distal left anterior descending. Mean gradient of 33 mmHg based on a pullback measurement. End-diastolic pressure is 10 to 12 mmHg. RECOMMENDATIONS: I am recommending percutaneous aortic valve replacement, and the patient will be seen in the [facility]. MMYASMIN / ZAIRA: [id number] /
== END 2022-04-04 15:50 | disposition home or self-care (01) ==
LOC: CATHCVL 07:17
PROVIDERS: ATTEND Internal Medicine Interventional Cardiology
DX: I35.0 Nonrheumatic aortic (valve) stenosis (principal); I27.20 Pulmonary hypertension, unspecified; E78.5 Hyperlipidemia, unspecified; I10 Essential (primary) hypertension; J45.909 Unspecified asthma, uncomplicated; Z82.49 Family history of ischemic heart disease and other diseases of the circulatory system; Z79.899 Other long term (current) drug therapy
CPT/HCPCS: 93312; 93320; 93325; 93458; C1769 ×2; C1894; J2250; J2001; J3010; J1644; Q9967

== ENCOUNTER → 2022-04-17 | Outpatient (CLI) | payer MEDICARE ==
[2022-04-17 10:27] LABS: Basophils % (A) 1 %; Eosinophils # (A) 0.2 k/uL (0-0.7); Eosinophils % (A) 3 %; HCT 35.7 % (34.0-46.0); Lymphocytes # (A) 1.3 k/uL (1.0-4.8); Lymphocytes % (A) 21 %; MCH 30.1 pg (25.0-35.0); MCHC 33.6 g/dL (31.0-37.0); MCV 89.6 fL (80.0-100.0); Mean Platelet Volume 8.1; Monocytes # (A) 0.2 k/uL (0-1.0); Monocytes % (A) 4 %; Neutrophils # (A) 4.4 k/uL (1.3-7.7); Neutrophils % (A) 70 %; Platelet Count 270 k/uL (150-450); RBC 3.98 m/uL (3.80-5.40); RDW 13.4 % (11.5-15.5); WBC 6.3 k/uL (3.8-10.6)
[2022-04-17 10:32] LABS: Partial Thromboplastin Time 26.1 sec (22.0-30.0); Prothrombin Time 10.5 sec (9.0-12.0)
[2022-04-17 11:28] LABS: ALT 24 U/L (4-34); AST 24 U/L (14-36); African American GFR (CKD) >90 (>60 ml/min/1.73 sqM); Albumin 4.3 g/dL (3.5-5.0); Albumin/Globulin Ratio 1.4; Alkaline Phosphatase 59 U/L (38-126); Anion Gap 9 mmol/L; Blood Urea Nitrogen 11 mg/dL (7-17); Calcium 9.5 mg/dL (8.4-10.2); Carbon Dioxide 26 mmol/L (22-30); Chloride 108 mmol/L (98-107); Glucose 149 mg/dL (74-99); Magnesium 2.1 mg/dL (1.6-2.3); Non-African American GFR(CKD) 83 (>60 ml/min/1.73 sqM); Potassium 4.1 mmol/L (3.5-5.1); Sodium 143 mmol/L (137-145); Total Bilirubin 0.3 mg/dL (0.2-1.3); Total Protein 7.3 g/dL (6.3-8.2)
[2022-04-17 11:46] LABS: Appearance,Urine Clear (Clear); Bilirubin,Urine Negative (Negative); Blood,Urine Negative (Negative); Color,Urine Light Yellow; Glucose,Urine (UA) Negative (Negative); Ketones,Urine Negative (Negative); Leukocyte Esterase,Urine Small (Negative); Mucus,Urine Rare /hpf; Nitrite,Urine Negative (Negative); PH, Urine 7.5 (5.0-8.0); Protein,Urine Negative (Negative); Specific Gravity,Urine 1.006 (1.001-1.035); Squamous Epithelial Cell,Urine 1 /hpf (0-4); Urobilinogen,Urine <2.0 mg/dL (<2.0); WBC,Urine 5 /hpf (0-5)
--- NOTE | 2022-04-17 12:47 | US ---
EXAMINATION TYPE: US carotid duplex BILAT DATE OF EXAM: 04/17/2022 COMPARISON: CLINICAL HISTORY: I35.1 NONRHEUMATIC AORTIC (VALVE) INSUFFICIENCY. No HTN. Pre OP. TECHNIQUE: Carotid duplex ultrasound examination. Indirect Doppler criteria was utilized. FINDINGS: EXAM MEASUREMENTS: RIGHT: Peak Systolic Velocity (PSV) cm/sec ----- Right CCA: 59.1 ----- Right ICA: 98.1 ----- Right ECA: 118.0 ICA/CCA ratio: 1.7 RIGHT: End Diastole cm/sec ----- Right CCA: 33.8 ----- Right ICA: 29.2 ----- Right ECA: 14.8 LEFT: Peak Systolic Velocity (PSV) cm/sec ----- Left CCA: 68.9 ----- Left ICA: 118.0 ----- Left ECA: 119.0 ICA/CCA ratio: 1.7 LEFT: End Diastole cm/sec ----- Left CCA: 16.0 ----- Left ICA: 37.7 ----- Left ECA: 10.4 VERTEBRALS (direction of flow): Right Vertebral: Antegrade Left Vertebral: Antegrade Rhythm: Arrhythmia RN OBGYN NOTES: No elevated velocities or plaque visualized. No significant stenosis. IMPRESSION: 1. No hemodynamically significant stenosis. 2. Cardiac dysrhythmia Criteria for Assigning % of Stenosis / Diameter reduction (Estimation based on the indirect measurements of the internal carotid artery velocities (ICA PSV). 1. Normal (no stenosis)=ICA PSV < 125 cm/s: ratio < 2.0: ICA EDV<40 cm/s. 2. Less than 50% stenosis=ICA PSV < 125 cm/s: ratio < 2.0: ICA EDV<40 cm/s. 3. 50 to 69% stenosis=ICA PSV of 125 to 230 cm/s: ration 2.0 ? 4.0: ICA EDV 40-100 cm/s. 4. Greater than 70% stenosis to near occlusion= ICA PSV > 230 cm/s: ratio > 4.0: ICA EDV > 100 cm/s. 5. Near occlusion= ICA PSV velocities may be low or undetectable: variable ratio and ICA EDV. 6. Total occlusion=unable to detect flow.
--- NOTE | 2022-04-17 14:06 | CT ---
EXAMINATION TYPE: CT TAVR Planning DATE OF EXAM: 04/17/2022 HISTORY: TAVR planning CT DLP: 2509.40 mGycm Automated Exposure Control for Dose Reduction was Utilized. CONTRAST: CT scan of the chest, abdomen and pelvis is performed with IV Contrast, patient injected with 125 mL of Isovue 370. COMPARISON: None. TECHNIQUE: Helical imaging obtained through the chest, abdomen and pelvis during arterial phase rhianna yandy administration of radiographic contrast intravenously. FINDINGS: See report from [facility] regarding preprocedural planning CHEST: Lower Neck and Thyroid: No significant findings Lungs: Focal small hernia defect in the posterior medial right lung base sagittal image 64 series 16. Central Airway: No significant findings Pleura: No significant findings Pulmonary Arteries: No significant findings Heart and Pericardium: Calcifications and thickening involving the mitral and aortic valves is seen. Lymph Nodes: No significant findings Mediastinum & Esophagus: No significant findings Other findings: Single calcification right breast axial image 53 ABDOMEN/PELVIS: Please note arterial phase of the imaging limits detailed evaluation of the solid abdominal organs. Liver: No significant findings Spleen: No significant findings Kidneys: No significant findings Adrenal Glands: No significant findings Pancreas: No significant findings Gallbladder: No significant findings Bowel and Mesentery: Prominent diffuse colonic diverticulosis is identified. No convincing CT evidenc e for acute diverticulitis. Lymph Nodes: No significant findings Urinary Bladder: No significant findings Pelvic Organs: Uterus surgically absent. Osseous structures: S-shaped scoliotic curvature. Multilevel spurring in the spine. Exaggerated lumba r lordosis. Facet arthropathy lower lumbar levels. Metallic hardware from right hip surgery causes st reak artifact somewhat limiting evaluation of pelvic structures. Moderate to severe narrowing and spu rring in the left hip joint is present. Other: None IMPRESSION: No significant incidental findings identified.
[2022-04-17 16:04] LABS: Hepatitis A Antibody IgM Nonreactive (Nonreactive); Hepatitis B Core IgM Nonreactive (Nonreactive); Hepatitis B Surface Antigen Nonreactive (Nonreactive); Hepatitis C IgG Antibody Nonreactive (Nonreactive)
[2022-04-17 23:31] LABS: LDL Cholesterol,Calculated 67.4 mg/dL (0.0-131.0)
== END | disposition home or self-care (01) ==
LOC: LABWHC1 08:57
PROVIDERS: ATTEND Thoracic Surgery (Cardiothoracic Vascular Surgery)
DX: Z01.818 Encounter for other preprocedural examination (principal); I35.0 Nonrheumatic aortic (valve) stenosis; E87.8 Other disorders of electrolyte and fluid balance, not elsewhere classified; Z79.899 Other long term (current) drug therapy; R58 Hemorrhage, not elsewhere classified; E07.9 Disorder of thyroid, unspecified; R35.0 Frequency of micturition; Z79.01 Long term (current) use of anticoagulants; E11.9 Type 2 diabetes mellitus without complications; N28.9 Disorder of kidney and ureter, unspecified; E78.5 Hyperlipidemia, unspecified; I35.1 Nonrheumatic aortic (valve) insufficiency
CPT/HCPCS: 94150; 83880; 80061; 80053; 80074; 84443; 83735; 85025; 85610; 85730; 81001; 87086; 83036; 93880; 71275; 36415 ×2; 74174; 93005; Q9967

== ENCOUNTER 2022-06-05 10:24 | Observation (INO) | payer MEDICARE ==
[2022-06-05 11:26] LABS: Basophils % (A) 1 %; Eosinophils # (A) 0.2 k/uL (0-0.7); Eosinophils % (A) 3 %; HCT 20.1 % (34.0-46.0); Hypochromasia Marked; Lymphocytes # (A) 1.2 k/uL (1.0-4.8); Lymphocytes % (A) 18 %; MCH 27.2 pg (25.0-35.0); MCHC 30.7 g/dL (31.0-37.0); MCV 88.5 fL (80.0-100.0); Mean Platelet Volume 7.2; Monocytes # (A) 0.3 k/uL (0-1.0); Monocytes % (A) 5 %; Neutrophils # (A) 4.6 k/uL (1.3-7.7); Neutrophils % (A) 71 %; Poikilocytosis Moderate; RBC 2.27 m/uL (3.80-5.40); WBC 6.4 k/uL (3.8-10.6)
[2022-06-05 11:28] LABS: Calcium 8.9 mg/dL (8.4-10.2); Magnesium 2.4 mg/dL (1.6-2.3); Potassium 4.6 mmol/L (3.5-5.1); Total Bilirubin 0.2 mg/dL (0.2-1.3); Total Protein 6.8 g/dL (6.3-8.2)
[2022-06-05 11:32] LABS: Platelet Count 431 k/uL (150-450)
[2022-06-05 11:34] LABS: HGB 6.2 gm/dL (11.4-16.0)
[2022-06-05 11:44] LABS: Partial Thromboplastin Time 22.7 sec (22.0-30.0); Prothrombin Time 10.9 sec (9.0-12.0)
--- NOTE | 2022-06-05 13:10 | ED ---
Recheck HPI - General Chief Complaint: Recheck/Abnormal Lab/Rx Stated Complaint: Recheck Time Seen by Provider: 06/05/22 10:31 Source: patient, family, RN notes reviewed, old records reviewed Mode of arrival: ambulatory Limitations: no limitations - History of Present Illness Initial Comments: 76-year-old female with a history of aortic valve disease who had a TVAR sibling who is in today because of a lab draw yesterday which showed anemia. Patient d oes note that she's been feeling somewhat fatigued and short of breath since after the procedure she states about a week after the procedure she had a lot of bleeding from hemorrhoids. She denies any bleeding at this time no fevers chills nausea vomiting sweats no overt chest pain. Other current complaints or modifying factors MD Complaint: abnormal lab - Related Data Home Medications Medication Instructions Recorded Confirmed Montelukast [Singulair] 10 mg PO HS 12/23/18 06/05/22 Albuterol Inhaler [Ventolin Hfa 2 puff INHALATION RT-QID PRN 01/12/20 06/05/22 Inhaler] Cholecalciferol [Vitamin D3 (25 50 mcg PO HS 04/02/22 06/05/22 Mcg = 1000 Iu)] Fluticasone Nasal [place] [Flonase 2 spray EA NOSTRIL DAILY PRN 04/02/22 06/05/22 Nasal [place]] Losartan [Cozaar] 25 mg PO HS 04/02/22 06/05/22 Metoprolol Tartrate [Lopressor] 12.5 mg PO HS 04/02/22 06/05/22 Metoprolol Tartrate [Lopressor] 25 mg PO DAILY 04/02/22 06/05/22 Multivitamins, Thera [Multivitamin 1 tab PO HS 04/02/22 06/05/22 (formulary)] Vitamin B Complex 1 cap PO HS 04/02/22 06/05/22 Aspirin 81 mg PO HS 06/05/22 06/05/22 Clopidogrel [Plavix] 75 mg PO HS 06/05/22 06/05/22 Fluticasone Propion/Salmeterol 1 puff INHALATION RT-HS 06/05/22 06/05/22 [Fluticasone-Salmeterol 250-50] Previous Rx's Medication Instructions Recorded Acetaminophen Tab [Tylenol] 650 mg PO Q4HR PRN tab 05/15/22 Atorvastatin [Lipitor] 10 mg PO HS #30 tab 05/15/22 Allergies Allergy/AdvReac Type Severity Reaction Status Date / Time adhesive tape AdvReac "peels Verified 06/05/22 10:30 skin" Review of Systems ROS Statement: Those systems with pertinent positive or pertinent negative responses have been documented in the HPI. ROS Other: All systems not noted in ROS Statement are negative. Past Medical History Past Medical History: Asthma, CVA/TIA, GERD/Reflux, Hypertension, Osteoarthritis (OA) Additional Past Medical History / Comment(s): hx of TIA, no residual effects, hx of diabetes insipidus, (takes no rx for this), SOB w/exertion, "valve problem" per pt. History of Any Multi-Drug Resistant Organisms: None Reported Past Surgical History: Breast Surgery, Section, Heart Catheterization, Hysterectomy, Orthopedic Surgery, Tonsillectomy Additional Past Surgical History / Comment(s): sinus surgery x 3. left breast biopsy, benign, ORIF rt femur w/brian and pins 2016 Past Anesthesia/Blood Transfusion Reactions: No Reported Reaction Past Psychological History: No Psychological Hx Reported Smoking Status: Never smoker Past Alcohol Use History: None Reported Past Drug Use History: None Reported - Past Family History Mother Family Medical History: Cancer Additional Family Medical History / Comment(s): colon, breast Father Family Medical History: Cancer Additional Family Medical History / Comment(s): skin, ?leukemia Daughter(s) Family Medical History: Cancer Additional Family Medical History / Comment(s): breast General Exam - General Exam Comments Initial Comments: This is a well-developed well-nourished awake alert oriented 4 female Limitations: no limitations General appearance: alert Head exam: Present: atraumatic, normocephalic, normal inspection Eye exam: Present: normal appearance, PERRL, EOMI, other (Pale conjunctiva). Absent: scleral icterus, periorbital swelling ENT exam: Present: normal exam, mucous membranes moist Neck exam: Present: normal inspection, full ROM, other (No stridor JVD or bruits). Absent: tenderness, meningismus, lymphadenopathy Respiratory exam: Present: normal lung sounds bilaterally. Absent: respiratory distress, wheezes, rales, rhonchi, stridor Cardiovascular Exam: Present: regular rate, normal rhythm, normal heart sounds. Absent: systolic murmur, diastolic murmur, rubs, gallop, clicks GI/Abdominal exam: Present: soft, normal bowel sounds. Absent: distended, tenderness, guarding, rebound, rigid Rectal exam: Present: heme (-) stool, other (Rectal exam negative for masses there is evidence of an old healing hemorrhoid) Extremities exam: Present: normal inspection, full ROM, normal capillary refill. Absent: tenderness, pedal edema, joint swelling, calf tenderness Back exam: Present: normal inspection Neurological exam: Present: alert, oriented X3, CN II-XII intact Psychiatric exam: Present: normal affect, normal mood Skin exam: Present: warm, dry, intact, pallor. Absent: rash Course Vital Signs 06/05/22 10:27 Temperature 98 F Pulse Rate 88 Respiratory 20 Rate Blood Pressure 133/60 O2 Sat by Pulse 99 Oximetry Medical Decision Making - Medical Decision Making Patient will require blood transfusion patient does have elevated troponin this may be secondary to the prior aortic procedure versus new from the anemia that was symptomatic. I discussed the case with Dr. Culp. Patient be admitted with consult by Dr. Hillman [facility] pt. sent in by a medical professional or institution (, PA, BETTING AGENCY COUNTER CLERK, urgent care, hospital, or group home...) When possible be specific @ -[No] Did you speak to anyone other than the patient for history (EMS, parent, family, police, friend...)? What history was obtained from this source @ -[No] Did you review nursing and triage notes (agree or disagree)? Why? @ -[I reviewed and agree with nursing and triage notes] Were old charts reviewed (outside hosp., previous admission, EMS record, old EKG, old radiological studies, urgent care reports/EKG's, group home records)? Report findings @ -old charts were reviewed] Differential Diagnosis (chest pain, altered mental status, abdominal pain women, abdominal pain men, vaginal bleeding, weakness, fever, dyspnea, syncope, headache, dizziness, GI bleed, back pain, seizure, CVA, palpatations, mental health, musculoskeletal)? @ -[Anemia, GI bleed, dyspnea] EKG interpreted by me (3pts min.). @ -[As above] X-rays interpreted by me (1pt min.). @ -[None done] CT interpreted by me (1pt min.). @ -[None done] U/S interpreted by me (1pt. min.). @ -[None done] What testing was considered but not performed or refused? (CT, X-rays, U/S, labs)? Why? @ -[None] What meds were considered but not given or refused? Why? @ -[None] Did you discuss the management of the patient with other professionals (professionals i.e. , PA, BETTING AGENCY COUNTER CLERK, lab, RT, psych nurse, clinical social work aide, electrical line splicer, teacher, data officer, case specialist)? Give summary @ -[Dr. Culp] Was smoking cessation discussed for >3mins.? @ -[No] Was critical care preformed (if so, how long)? @ -[No] Were there social determinants of health that impacted care today? How? (Homelessness, low income, unemployed, alcoholism, drug addiction, transportation, low edu. Level, literacy, decrease access to med. care, long term, rehab)? @ -[No] Was there de-escalation of care discussed even if they declined (Discuss DNR or withdrawal of care, Hospice)? DNR status @ -[No] What co-morbidities impacted this encounter? (DM, HTN, Smoking, COPD, CAD, Cancer, CVA, ARF, Chemo, Hep., AIDS, mental health diagnosis, sleep apnea, morbid obesity)? @ -[Recent aortic hard to the surgery, history of hemorrhoids] Was patient admitted / discharged? Hospital course, mention meds given and route , prescriptions, significant lab abnormalities, going to OR and other pertinent info. @ -[hospital course] admitted Undiagnosed new problem with uncertain prognosis? @ -[No] Drug Therapy requiring intensive monitoring for toxicity (Heparin, Nitro, Insulin, Cardizem)? @ -[No] Were any procedures done? @ -[No] Diagnosis/symptom? @ -[Anemia, elevated troponin, recent heart valve surgery], history of hemorrhoids Acute, or Chronic, or Acute on Chronic? @ -[Acute] Uncomplicated (without systemic symptoms) or Complicated (systemic symptoms)? @ -[default] Side effects of treatment? @ -[No] Exacerbation, Progression, or Severe Exacerbation? @ -[No] Poses a threat to life or bodily function? How? (Chest pain, [place], [place], pneumonia, PE, COPD, DKA, ARF, appy, cholecystitis, CVA, Diverticulitis, Homicidal, Suicidal, threat to staff... and all critical care pts) @ -[No] - Lab Data Result diagrams: 06/05/22 10:52 06/05/22 10:52 Lab Results 06/05/22 06/05/22 06/05/22 Range/Units 10:52 10:52 10:52 WBC 6.4 (3.8-10.6) k/uL RBC 2.27 L (3.80-5.40) m/uL Hgb 6.2 L* D (11.4-16.0) gm/dL Hct 20.1 L (34.0-46.0) % MCV 88.5 (80.0-100.0) fL MCH 27.2 (25.0-35.0) pg MCHC 30.7 L (31.0-37.0) g/dL RDW 15.0 (11.5-15.5) % Plt Count 431 D (150-450) k/uL MPV 7.2 Neutrophils % 71 % Lymphocytes % 18 % Monocytes % 5 % Eosinophils % 3 % Basophils % 1 % Neutrophils # 4.6 (1.3-7.7) k/uL Lymphocytes # 1.2 (1.0-4.8) k/uL Monocytes # 0.3 (0-1.0) k/uL Eosinophils # 0.2 (0-0.7) k/uL Basophils # 0.0 (0-0.2) k/uL Hypochromasia Marked Poikilocytosis Moderate PT 10.9 (9.0-12.0) sec INR 1.0 (<1.2) APTT 22.7 (22.0-30.0) sec Sodium 140 (137-145) mmol/L Potassium 4.6 (3.5-5.1) mmol/L Chloride 109 H (98-107) mmol/L Carbon Dioxide 21 L (22-30) mmol/L Anion Gap 10 mmol/L BUN 7 (7-17) mg/dL Creatinine 0.81 (0.52-1.04) mg/dL Est GFR (CKD-EPI)AfAm 83 (>60 ml/min/1.73 sqM) Est GFR (CKD-EPI)NonAf 72 (>60 ml/min/1.73 sqM) Glucose 104 H (74-99) mg/dL Calcium 8.9 (8.4-10.2) mg/dL Magnesium 2.4 H (1.6-2.3) mg/dL Total Bilirubin 0.2 (0.2-1.3) mg/dL AST 25 (14-36) U/L ALT 23 (4-34) U/L Alkaline Phosphatase 62 (38-126) U/L Troponin I (0.000-0.034) ng/mL Total Protein 6.8 (6.3-8.2) g/dL Albumin 4.0 (3.5-5.0) g/dL Lipase 135 (23-300) U/L Stool Occult Blood (Negative) 06/05/22 06/05/22 Range/Units 10:52 10:52 WBC (3.8-10.6) k/uL RBC (3.80-5.40) m/uL Hgb (11.4-16.0) gm/dL Hct (34.0-46.0) % MCV (80.0-100.0) fL MCH (25.0-35.0) pg MCHC (31.0-37.0) g/dL RDW (11.5-15.5) % Plt Count (150-450) k/uL MPV Neutrophils % % Lymphocytes % % Monocytes % % Eosinophils % % Basophils % % Neutrophils # (1.3-7.7) k/uL Lymphocytes # (1.0-4.8) k/uL Monocytes # (0-1.0) k/uL Eosinophils # (0-0.7) k/uL Basophils # (0-0.2) k/uL Hypochromasia Poikilocytosis PT (9.0-12.0) sec INR (<1.2) APTT (22.0-30.0) sec Sodium (137-145) mmol/L Potassium (3.5-5.1) mmol/L Chloride (98-107) mmol/L Carbon Dioxide (22-30) mmol/L Anion Gap mmol/L BUN (7-17) mg/dL Creatinine (0.52-1.04) mg/dL Est GFR (CKD-EPI)AfAm (>60 ml/min/1.73 sqM) Est GFR (CKD-EPI)NonAf (>60 ml/min/1.73 sqM) Glucose (74-99) mg/dL Calcium (8.4-10.2) mg/dL Magnesium (1.6-2.3) mg/dL Total Bilirubin (0.2-1.3) mg/dL AST (14-36) U/L ALT (4-34) U/L Alkaline Phosphatase (38-126) U/L Troponin I 0.070 H* (0.000-0.034) ng/mL Total Protein (6.3-8.2) g/dL Albumin (3.5-5.0) g/dL Lipase (23-300) U/L Stool Occult Blood Negative (Negative) - EKG Data -: EKG Interpreted by Me EKG Comments: EKG interpreted by me normal sinus rhythm 82. Interval 149 QRS duration 74 QT since QTC 366/[address]-T wave changes some artifact present. Disposition Clinical Impression: Anemia, History of aortic valve repair, Troponin I above reference range, History of hemorrhoids Disposition: ADMITTED IP TO THIS HOSP Condition: Fair Referrals: Sy Bennett MD [Primary Care Provider] - 1-2 days Decision Date: 06/05/22 Decision Time: 13:21
[2022-06-05] MEDS ORDERED: NALOXONE 0.4 MG/ML 1 ML VIAL IV PRN (13:21)
[2022-06-05] MEDS ORDERED: ACETAMINOPHEN TAB 325 MG TAB PO PRN ×2 (13:21→13:25)
[2022-06-05] MEDS ORDERED: ALBUTEROL HFA INHALER INHALATION PRN (13:25)
[2022-06-05] MEDS ORDERED: FLUTICASONE 50MCG/SPRAY NASAL 16GM EA NOSTRIL PRN (13:25)
[2022-06-05] MEDS: SODIUM CHLORIDE 0.9% 1,000 ML IV SCH (13:30)
--- NOTE | 2022-06-05 17:55 | P.HPIM ---
History of Present Illness H&P Date: 06/05/22 Patient is a 76-year-old female with PMH of asthma, history of TIA, hypertension, GERD presents the ED for abnormal lab. Of note, patient underwent TAVR on 05/[address] Ba. Her hemoglobin on discharge at that time was 10.2. Patient reports 2 days after her discharge, she experience multiple bouts of BRBPR related to hemorrhoids. She reports excessive amount of blood, multiple times a day. CBC was done on 05/19/2022 which showed hemoglobin of 10.7. After her blood, she experienced 2 more days of BRBPR which she relates to hemorrhoids. Her GI bleed completely resolved after that. Since then, patient reports fatigue, exertional shortness of breath, lightheadedness especially with positional changes. She had blood work done today which showed a hemoglobin of 5.5 in the outpatient setting which prompted her to come to the ED. In the ED, her vital signs are stable. CBC showed hemoglobin of 6.2. Coagulation panel was within normal limits. CMP showed chloride of 109, bicarb of 21, glucose 104. Magnesium was 2.4. Troponin was 0.07 with EKG showing sinus rhythm. Lipase within normal limits. Stool for occult blood negative. Patient is admitted for symptomatic anemia with cardiology consultation. Pertinent positives and negatives as discussed in HPI, a complete review of systems was performed and all other systems are negative. General: non toxic, no distress, appears at stated age Derm: warm, dry Head: atraumatic, normocephalic, symmetric Eyes: EOMI, no lid lag, pale sclera Mouth: no lip lesion, mucus membranes moist Cardiovascular: S1S2 reg, systolic murmur Lungs: CTA bilateral, no rhonchi, no rales , no accessory muscle use Abdominal: soft, nontender to palpation, no guarding, no appreciable organomegaly Ext: no gross muscle atrophy, no edema, no contractures Neuro: no focal neuro deficits Psych: Alert, oriented, appropriate affect #Symptomatic anemia likely related to resolved lower GI bleed #Elevated troponin likely related to demand ischemia Chronic conditions: Asthma, history of TIA, hypertension, GERD Based on my assessment of this patient, this patient meets a high complexity level of care. Patient has an acute diagnosis of symptomatic anemia that poses a threat to life or bodily function. Her hemoglobin is 6.2. Likely resolved GI bleed. Stool occult blood is negative. She requires 1 unit PRBC. Aspirin and Plavix will be held for now. She'll be started on telemetry monitoring. Iron studies were ordered. Cardiology consulted for further management of this patient. Troponin be trended and ACS will be ruled out. Restart albuterol and Symbicort and Singulair for history of asthma. Restart metoprolol 12.5 mg by mouth at bedtime, 25 mg by mouth daily, losartan 25 mg by mouth at bedtime for history of hypertension. Patient names her 's decision maker if she can't make decisions for herself. Patient would like to be full code. Past Medical History Past Medical History: Asthma, CVA/TIA, GERD/Reflux, Hypertension, Osteoarthritis (OA) Additional Past Medical History / Comment(s): hx of TIA, no residual effects, hx of diabetes insipidus, (takes no rx for this), SOB w/exertion, "valve problem" per pt. History of Any Multi-Drug Resistant Organisms: None Reported Past Surgical History: Breast Surgery, Section, Heart Catheterization, Hysterectomy, Orthopedic Surgery, Tonsillectomy Additional Past Surgical History / Comment(s): sinus surgery x 3. left breast biopsy, benign, ORIF rt femur w/brian and pins 2016 Past Anesthesia/Blood Transfusion Reactions: No Reported Reaction Past Psychological History: No Psychological Hx Reported Smoking Status: Never smoker Past Alcohol Use History: None Reported Past Drug Use History: None Reported - Past Family History Mother Family Medical History: Cancer Additional Family Medical History / Comment(s): colon, breast Father Family Medical History: Cancer Additional Family Medical History / Comment(s): skin, ?leukemia Daughter(s) Family Medical History: Cancer Additional Family Medical History / Comment(s): breast Medications and Allergies Home Medications Medication Instructions Recorded Confirmed Type Montelukast [Singulair] 10 mg PO HS 12/23/18 06/05/22 History Albuterol Inhaler [Ventolin Hfa 2 puff INHALATION RT-QID PRN 01/12/20 06/05/22 History Inhaler] Cholecalciferol [Vitamin D3 (25 50 mcg PO HS 04/02/22 06/05/22 History Mcg = 1000 Iu)] Fluticasone Nasal [place] [Flonase 2 spray EA NOSTRIL DAILY PRN 04/02/22 06/05/22 History Nasal [place]] Losartan [Cozaar] 25 mg PO HS 04/02/22 06/05/22 History Metoprolol Tartrate [Lopressor] 12.5 mg PO HS 04/02/22 06/05/22 History Metoprolol Tartrate [Lopressor] 25 mg PO DAILY 04/02/22 06/05/22 History Multivitamins, Thera [Multivitamin 1 tab PO HS 04/02/22 06/05/22 History (formulary)] Vitamin B Complex 1 cap PO HS 04/02/22 06/05/22 History Acetaminophen Tab [Tylenol] 650 mg PO Q4HR PRN tab 05/15/22 06/05/22 Rx Atorvastatin [Lipitor] 10 mg PO HS #30 tab 05/15/22 06/05/22 Rx Aspirin 81 mg PO HS 06/05/22 06/05/22 History Clopidogrel [Plavix] 75 mg PO HS 06/05/22 06/05/22 History Fluticasone Propion/Salmeterol 1 puff INHALATION RT-HS 06/05/22 06/05/22 History [Fluticasone-Salmeterol 250-50] Allergies Allergy/AdvReac Type Severity Reaction Status Date / Time adhesive tape AdvReac "peels Verified 06/05/22 10:30 skin" Physical Exam Vitals: Vital Signs Temp Pulse Resp BP Pulse Ox 06/05/22 16:45 98.9 F 86 18 141/70 06/05/22 16:10 98.8 F 84 18 149/55 06/05/22 15:55 98.8 F 80 18 143/68 06/05/22 15:36 98.8 F 82 18 143/75 06/05/22 15:16 98.9 F 89 18 130/61 06/05/22 15:06 98.9 F 85 18 123/53 98 06/05/22 10:27 98 F 88 20 133/60 99 Intake and Output 06/05/22 06/05/22 06/05/22 06:59 14:59 22:59 Intake Total 310 Balance 310 Intake: Blood Product 310 Rc As-1 Unit 310 [id number] Other: Weight 84.368 kg Results CBC & Chem 7: 06/05/22 10:52 06/05/22 10:52 Labs: Abnormal Lab Results - Last 24 Hours (Table) 06/05/22 06/05/22 06/05/22 Range/Units 10:52 10:52 10:52 RBC 2.27 L (3.80-5.40) m/uL Hgb 6.2 L* D (11.4-16.0) gm/dL Hct 20.1 L (34.0-46.0) % MCHC 30.7 L (31.0-37.0) g/dL Chloride 109 H (98-107) mmol/L Carbon Dioxide 21 L (22-30) mmol/L Glucose 104 H (74-99) mg/dL Magnesium 2.4 H (1.6-2.3) mg/dL Troponin I 0.070 H* (0.000-0.034) ng/mL Crossmatch 06/05/22 06/05/22 Range/Units 10:54 16:55 RBC (3.80-5.40) m/uL Hgb (11.4-16.0) gm/dL Hct (34.0-46.0) % MCHC (31.0-37.0) g/dL Chloride (98-107) mmol/L Carbon Dioxide (22-30) mmol/L Glucose (74-99) mg/dL Magnesium (1.6-2.3) mg/dL Troponin I 0.082 H* (0.000-0.034) ng/mL Crossmatch See Detail
[2022-06-05] MEDS: SYMBICORT 80-4.5 MCG INHALER INHALATION SCH (19:56)
[2022-06-05] MEDS ORDERED: METOPROLOL TARTRATE 12.5 MG TAB PO SCH (21:00)
[2022-06-05] MEDS ORDERED: MONTELUKAST 10 MG TAB PO SCH (21:00)
[2022-06-05] MEDS ORDERED: CHOLECALCIFEROL 25 MCG (1000 IU) TABLET PO SCH (21:00)
[2022-06-05] MEDS ORDERED: LOSARTAN 25 MG TAB PO SCH (21:00)
[2022-06-05] MEDS ORDERED: MULTIVITAMINS, THERA 1 EACH TAB PO SCH (21:00)
[2022-06-05] MEDS ORDERED: ASPIRIN 81 MG PO SCH (21:00)
[2022-06-05] MEDS ORDERED: CLOPIDOGREL 75 MG TAB PO SCH (21:00)
[2022-06-05] MEDS ORDERED: ATORVASTATIN 10 MG TAB PO SCH (21:00)
[2022-06-05] MEDS ORDERED: NON FORMULARY DRUG (Vitamin B Complex [Vitamin B Complex] 1 EACH Capsule) PO SCH (21:00)
[2022-06-06 00:29] LABS: % Iron Saturation 11.37 (12.00-45.00); Ferritin 15.7 ng/mL (10.0-291.0)
[2022-06-06] MEDS: SODIUM CHLORIDE 0.9% 1,000 ML IV SCH ×2 (04:20→08:49)
[2022-06-06 06:19] LABS: Glucose,Whole Blood 115 mg/dL (70-110)
[2022-06-06 06:55] LABS: Basophils % (A) 1 %; Eosinophils # (A) 0.2 k/uL (0-0.7); Eosinophils % (A) 5 %; Hypochromasia Marked; Lymphocytes # (A) 1.1 k/uL (1.0-4.8); Lymphocytes % (A) 24 %; MCH 27.1 pg (25.0-35.0); MCHC 31.7 g/dL (31.0-37.0); MCV 85.4 fL (80.0-100.0); Mean Platelet Volume 7.3; Monocytes # (A) 0.2 k/uL (0-1.0); Monocytes % (A) 5 %; Neutrophils # (A) 2.9 k/uL (1.3-7.7); Neutrophils % (A) 64 %; Platelet Count 249 k/uL (150-450); Poikilocytosis Marked; RBC 2.27 m/uL (3.80-5.40); RDW 15.6 % (11.5-15.5); WBC 4.6 k/uL (3.8-10.6)
[2022-06-06 07:35] LABS: HGB 6.1 gm/dL (11.4-16.0)
[2022-06-06 07:53] LABS: HCT 19.4 % (34.0-46.0)
[2022-06-06] MEDS: SYMBICORT 80-4.5 MCG INHALER INHALATION SCH (08:16)
[2022-06-06 08:46] VITALS: RESP 16
[2022-06-06] MEDS ORDERED: METOPROLOL TARTRATE 25 MG TAB PO SCH (09:00)
--- NOTE | 2022-06-06 09:45 | P.CRDCN ---
History of Present Illness Consult date: 06/06/22 Reason for Consult (text): History of present illness: This is a 76-year-old female patient of Dr. JAEL Bennett with past medical history of moderate to severe aortic stenosis, hypertension, hyper cholesterolemia, TIA in 2009. We have been asked to evaluate the patient regarding low hemoglobin. Patient is status post TAVR Performed on 05/14/2022. Post procedure time was uneventful and she was discharged home in stable condition. Patient states that she received a call from Dr. Bennett to come in the hospital. She states she's had some shortness of breath difficulty walking weakness and had rectal bleeding for about 3 days it resolved. She also had dizziness and felt she was hyperventilating. She denies having any chest pain. She had initially called her PCP but could not get an appointment until June 26. She called the office and obtain lab work which revealed a hemoglobin of 6.2. Patient presented to the emergency center and repeat hemoglobin was 6.1. She has been transfused 1 unit of packed RBCs. Patient states that she is feeling well this morning. EKG sinus rhythm with no acute ST changes Troponin 0.07, 0.082 and 0.083. BUN was 7 and creatinine 0.81. Potassium 4.6. Stool for occult blood was negative. Repeat hemoglobin this morning is pending. Home cardiac medications: Aspirin 81 mg at bedtime, atorvastatin 10 mg at bedtime, Plavix 75 mg at bedtime, losartan 25 mg at bedtime, Lopressor 25 mg in the morning 12 point 5 in the evening Review Of Systems: At the time of my evaluation: Constitutional: No fever, no chills. No weakness, fatigue or lethargy. EENT: No headache. No dizziness. Lungs: No shortness of breath, cough, no sputum production. No wheezing. Cardiovascular: No chest pain, no lower extremity edema. No palpitations. No paroxysmal nocturnal dyspnea. No orthopnea. No lightheadedness or dizziness. No syncopal episodes. Abdominal: No abdominal pain. No nausea, vomiting. No diarrhea. No constipation. No bloody or tarry stools. Genitourinary: No dysuria.. No urinary retention. Musculoskeletal: No myalgias. No muscle weakness, no frequent falls. No back pain. No neck pain. Integumentary: No wounds. No rash. No unusual bruising. Neurologic: No aphasia. No facial droop. No change in mentation. No head injury. No headache. Psychiatric: No depression. No anxiety. Endocrine: No abnormal blood sugars. Physical examination: Gen: This is a 76-year-old female. She is seated in a dementia of the bed and appears comfortable and in no acute distress. VS: reviewed HEENT: Head is atraumatic, normocephalic. Pupils equal, round. Sclerae is anicteric. NECK: Supple. No JVD. LUNGS: Clear to auscultation. No wheezes or rhonchi. No intercostal retractions. HEART: Regular rate and rhythm. No murmur. ABDOMEN: Soft. No tenderness. EXTREMITIES: No pedal edema. NEUROLOGICAL: Patient is awake, alert and oriented x3. Assessment: Recent rectal bleeding, resolved Acute blood loss anemia status post transfusion 1 unit packed RBCs Hypertension Hypercholesterolemia Bronchial asthma Hyperlipidemia Plan: Continue patient's home cardiac medications except for hold Plavix at discharge Patient is cleared from cardiology for discharge home. Follow-up with Dr. JAEL Bennett in the office in one week. Please reconsult for any new concerns. Thank you kindly for this consultation. Nurse practitioner note has been reviewed, I agree with documented findings and plan of care. Patient was seen and examined. Past Medical History Past Medical History: Asthma, CVA/TIA, GERD/Reflux, Hypertension, Osteoarthritis (OA) Additional Past Medical History / Comment(s): hx of TIA, no residual effects, hx of diabetes insipidus, (takes no rx for this), SOB w/exertion, "valve problem" per pt. History of Any Multi-Drug Resistant Organisms: None Reported Past Surgical History: Breast Surgery, Section, Heart Catheterization, Hysterectomy, Orthopedic Surgery, Tonsillectomy Additional Past Surgical History / Comment(s): sinus surgery x 3. left breast biopsy, benign, ORIF rt femur w/brian and pins 2016 Past Anesthesia/Blood Transfusion Reactions: No Reported Reaction Past Psychological History: No Psychological Hx Reported Smoking Status: Never smoker Past Alcohol Use History: None Reported Past Drug Use History: None Reported - Past Family History Mother Family Medical History: Cancer Additional Family Medical History / Comment(s): colon, breast Father Family Medical History: Cancer Additional Family Medical History / Comment(s): skin, ?leukemia Daughter(s) Family Medical History: Cancer Additional Family Medical History / Comment(s): breast Medications and Allergies Home Medications Medication Instructions Recorded Confirmed Type Montelukast [Singulair] 10 mg PO HS 12/23/18 06/05/22 History Albuterol Inhaler [Ventolin Hfa 2 puff INHALATION RT-QID PRN 01/12/20 06/05/22 History Inhaler] Cholecalciferol [Vitamin D3 (25 50 mcg PO HS 04/02/22 06/05/22 History Mcg = 1000 Iu)] Fluticasone Nasal [place] [Flonase 2 spray EA NOSTRIL DAILY PRN 04/02/22 06/05/22 History Nasal Mayo] Losartan [Cozaar] 25 mg PO HS 04/02/22 06/05/22 History Metoprolol Tartrate [Lopressor] 12.5 mg PO HS 04/02/22 06/05/22 History Metoprolol Tartrate [Lopressor] 25 mg PO DAILY 04/02/22 06/05/22 History Multivitamins, Thera [Multivitamin 1 tab PO HS 04/02/22 06/05/22 History (formulary)] Vitamin B Complex 1 cap PO HS 04/02/22 06/05/22 History Acetaminophen Tab [Tylenol] 650 mg PO Q4HR PRN tab 05/15/22 06/05/22 Rx Atorvastatin [Lipitor] 10 mg PO HS #30 tab 05/15/22 06/05/22 Rx Aspirin 81 mg PO HS 06/05/22 06/05/22 History Clopidogrel [Plavix] 75 mg PO HS 06/05/22 06/05/22 History Fluticasone Propion/Salmeterol 1 puff INHALATION RT-HS 06/05/22 06/05/22 History [Fluticasone-Salmeterol 250-50] Allergies Allergy/AdvReac Type Severity Reaction Status Date / Time adhesive tape AdvReac "peels Verified 06/05/22 10:30 skin" Physical Exam Vitals: Vital Signs Temp Pulse Pulse Resp BP BP Pulse Ox 06/06/22 04:00 98.2 F 86 18 132/69 97 06/06/22 01:25 98.1 F 92 18 155/69 98 06/06/22 01:08 85 18 127/58 98 06/05/22 23:50 82 18 138/70 93 L 06/05/22 23:40 82 19 138/70 94 L 06/05/22 23:30 89 19 96 06/05/22 23:20 97 06/05/22 23:00 84 18 94 L 06/05/22 22:50 84 18 94 L 06/05/22 22:40 82 12 138/70 95 06/05/22 22:30 88 138/70 96 06/05/22 22:20 82 19 95 06/05/22 22:10 82 18 95 06/05/22 22:00 82 19 95 06/05/22 21:50 82 18 96 06/05/22 21:40 83 19 96 06/05/22 21:30 84 18 96 06/05/22 21:20 85 20 97 06/05/22 21:10 86 18 94 L 06/05/22 21:00 84 18 94 L 06/05/22 20:50 86 19 94 L 06/05/22 20:40 89 17 94 L 06/05/22 20:30 93 16 97 06/05/22 20:20 89 15 95 06/05/22 20:10 94 28 H 95 06/05/22 20:00 90 13 126/63 97 06/05/22 19:50 98 10 L 126/63 96 06/05/22 19:40 92 18 126/63 96 06/05/22 19:30 91 14 126/63 100 06/05/22 19:20 92 18 121/44 99 06/05/22 19:19 89 14 126/63 100 06/05/22 19:10 121/44 06/05/22 19:00 93 14 121/44 98 02 18:50 94 14 121/44 99 06/05/22 18:40 93 17 121/44 98 02 18:30 101 H 24 121/44 88 L 06/05/22 18:20 95 12 121/44 98 02 18:10 84 43 H 141/73 99 02 18:00 80 15 148/65 96 06/05/22 17:50 90 17 148/65 97 02 17:40 82 13 156/63 96 06/05/22 17:30 101 H 19 147/63 06/05/22 17:20 96 27 H 147/63 98 03/02/23 17:10 81 13 147/53 99 06/05/22 17:00 81 16 142/54 99 06/05/22 16:50 85 14 142/54 90 L 06/05/22 16:45 98.8 F 78 18 146/78 06/05/22 16:40 82 14 141/70 100 06/05/22 16:30 82 11 L 141/64 98 06/05/22 16:20 81 9 L 141/64 100 06/05/22 16:10 98.8 F 97 26 H 149/55 100 06/05/22 16:00 85 17 145/60 98 06/05/22 15:55 98.8 F 80 18 143/68 06/05/22 15:50 86 14 145/60 97 06/05/22 15:40 85 17 143/75 99 06/05/22 15:36 98.8 F 82 18 143/75 06/05/22 15:30 86 10 L 130/61 99 06/05/22 15:20 94 22 130/61 06/05/22 15:16 98.9 F 89 18 130/61 06/05/22 15:10 87 16 123/53 99 06/05/22 15:06 98.9 F 85 18 123/53 98 06/05/22 15:00 85 15 138/66 98 06/05/22 14:50 86 18 138/66 98 06/05/22 14:40 82 30 H 138/66 99 06/05/22 14:30 112 H 25 H 138/66 06/05/22 14:20 81 15 138/66 99 06/05/22 14:10 83 14 138/66 99 06/05/22 14:00 80 15 168/71 97 06/05/22 13:50 78 13 168/71 96 06/05/22 10:27 98 F 88 20 133/60 99 Intake and Output 06/05/22 06/06/22 06/06/22 22:59 06:59 14:59 Intake Total 310 Balance 310 Intake: Blood Product 310 Rc As-1 Unit 310 [id number] Other: # Voids 1 Weight 84.368 kg Results 06/06/22 06:10 06/05/22 10:52 Cardiac Enzymes 06/05/22 06/05/22 06/05/22 Range/Units 10:52 10:52 16:55 AST 25 (14-36) U/L Troponin I 0.070 H* 0.082 H* (0.000-0.034) ng/mL 06/05/22 Range/Units 19:00 AST (14-36) U/L Troponin I 0.083 H* (0.000-0.034) ng/mL Coagulation 06/05/22 Range/Units 10:52 PT 10.9 (9.0-12.0) sec APTT 22.7 (22.0-30.0) sec CBC 06/05/22 Range/Units 10:52 WBC 6.4 (3.8-10.6) k/uL RBC 2.27 L (3.80-5.40) m/uL Hgb 6.2 L* D (11.4-16.0) gm/dL Hct 20.1 L (34.0-46.0) % Plt Count 431 D (150-450) k/uL Comprehensive Metabolic Panel 06/05/22 Range/Units 10:52 Sodium 140 (137-145) mmol/L Potassium 4.6 (3.5-5.1) mmol/L Chloride 109 H (98-107) mmol/L Carbon Dioxide 21 L (22-30) mmol/L BUN 7 (7-17) mg/dL Creatinine 0.81 (0.52-1.04) mg/dL Glucose 104 H (74-99) mg/dL Calcium 8.9 (8.4-10.2) mg/dL AST 25 (14-36) U/L ALT 23 (4-34) U/L Alkaline Phosphatase 62 (38-126) U/L Total Protein 6.8 (6.3-8.2) g/dL Albumin 4.0 (3.5-5.0) g/dL Current Medications Generic Name Dose Route Start Last Admin Trade Name Freq PRN Reason Stop Dose Admin Acetaminophen 650 mg 06/05/22 13:25 Acetaminophen Tab 325 Mg Tab PO Q4HR PRN Fever And/ Or Mild Pain (1-3) Albuterol Sulfate 2 puff 06/05/22 13:25 Albuterol Hfa Inhaler INHALATION RT-QID PRN Shortness Of Breath Atorvastatin Calcium 10 mg 06/05/22 21:00 06/05/22 20:25 Atorvastatin 10 Mg Tab PO 10 mg HS REGINA Administration Budesonide/Formoterol Fumarate 2 puff 06/05/22 20:00 06/05/22 19:56 Symbicort 80-4.5 Mcg Inhaler INHALATION Not Given RT-BID REGINA Cholecalciferol 50 mcg 06/05/22 21:00 06/05/22 20:25 Cholecalciferol 25 Mcg (1000 Iu) Tablet PO 50 mcg HS REGINA Administration Fluticasone Propionate 2 spray 06/05/22 13:25 Fluticasone 50mcg/Mayo Nasal 16gm EA NOSTRIL DAILY PRN allergies Sodium Chloride 1,000 mls @ 75 mls/hr 06/05/22 13:30 06/06/22 04:20 Saline 0.9% IV Not Given .[id number] [facility] Losartan Potassium 25 mg 06/05/22 21:00 06/05/22 20:25 Losartan 25 Mg Tab PO 25 mg HS REGINA Administration Metoprolol Tartrate 25 mg 06/06/22 09:00 Metoprolol Tartrate 25 Mg Tab PO DAILY REGINA Metoprolol Tartrate 12.5 mg 06/05/22 21:00 06/05/22 20:25 Metoprolol Tartrate 12.5 Mg Tab PO 12.5 mg HS REGINA Administration Montelukast Sodium 10 mg 06/05/22 21:00 06/05/22 20:25 Montelukast 10 Mg Tab PO 10 mg HS REGINA Administration Multivitamins 1 each 06/05/22 21:00 06/05/22 20:25 Multivitamins, Thera 1 Each Tab PO 1 each HS REGINA Administration Naloxone HCl 0.2 mg 06/05/22 13:21 Naloxone 0.4 Mg/Ml 1 Ml Vial IV Q2M PRN Opioid Reversal Intake and Output 06/05/22 06/06/22 06/06/22 22:59 06:59 14:59 Intake Total 310 Balance 310 Intake: Blood Product 310 Rc As-1 Unit 310 [id number] Other: # Voids 1 Weight 84.368 kg 06/05/22 10:52 06/05/22 10:52
[2022-06-06 12:08] LABS: Glucose,Whole Blood 105 mg/dL (70-110)
[2022-06-06 13:23] VITALS: BP 132/60; PULSE 85; TEMP 98.8
--- NOTE | 2022-06-06 14:10 | P.PN ---
Subjective Progress Note Date: 06/06/22 Patient is a 76-year-old female with PMH of asthma, history of TIA, hypertension, GERD presents the ED for abnormal lab. Of note, patient underwent TAVR on 05/[address] Ba. Her hemoglobin on discharge at that time was 10.2. Patient reports 2 days after her discharge, she experience multiple bouts of BRBPR related to hemorrhoids. She reports excessive amount of blood, multiple times a day. CBC was done on 05/19/2022 which showed hemoglobin of 10.7. After her blood, she experienced 2 more days of BRBPR which she relates to hemorrhoids. Her GI bleed completely resolved after that. Since then, patient reports fatigue, exertional shortness of breath, lightheadedness especially with positional changes. She had blood work done today which showed a hemoglobin of 5.5 in the outpatient setting which prompted her to come to the ED. In the ED, her vital signs are stable. CBC showed hemoglobin of 6.2. Coagulation panel was within normal limits. CMP showed chloride of 109, bicarb of 21, glucose 104. Magnesium was 2.4. Troponin was 0.07 with EKG showing sinus rhythm. Lipase within normal limits. Stool for occult blood negative. Patient is admitted for symptomatic anemia with cardiology consultation. Pertinent positives and negatives as discussed in HPI, a complete review of s ystems was performed and all other systems are negative. General: non toxic, no distress, appears at stated age Derm: warm, dry Head: atraumatic, normocephalic, symmetric Eyes: EOMI, no lid lag, pale sclera Mouth: no lip lesion, mucus membranes moist Cardiovascular: S1S2 reg, systolic murmur Lungs: CTA bilateral, no rhonchi, no rales , no accessory muscle use Abdominal: soft, nontender to palpation, no guarding, no appreciable organomegaly Ext: no gross muscle atrophy, no edema, no contractures Neuro: no focal neuro deficits Psych: Alert, oriented, appropriate affect #Symptomatic anemia likely related to resolved lower GI bleed #Elevated troponin likely related to demand ischemia Chronic conditions: Asthma, history of TIA, hypertension, GERD Based on my assessment of this patient, this patient meets a moderate complexity level of care. I have reviewed the following oracle security consultant notes: Cardiology note 06/06 shows no further workup and clears the patient for discharge from a cardiology standpoint. I have reviewed the results of the following tests: CBC showed hemoglobin of 6.1. Iron studies show iron of 40 and percent saturation of 11.37. Troponins are trending at 0.07, 0.82, 0.83. I have ordered the following tests: Repeat CBC is ordered. I have discussed the care of this patient with the following independent historian: None. I have independently interpreted the following test below: None. I have discussed the management of this patient with the following physician: None. Patient has an acute diagnosis of symptomatic anemia that poses a threat to life or bodily function. Her hemoglobin is 6.1. Likely resolved GI bleed. Stool occult blood is negative. Her hemoglobin dropped from 6.2 yesterday despite blood transfusion. Aspirin and Plavix will be held for now. She'll be continued on telemetry monitoring. Troponin has been trended and ACS has been ruled out. This is likely demand ischemia from severe anemia. Continue albuterol and Symbicort and Singulair for history of asthma. Continue metoprolol 12.5 mg by mouth at bedtime, 25 mg by mouth daily, losartan 25 mg by mouth at bedtime for history of hypertension. Patient names her 's decision maker if she can't make decisions for herself. Patient would like to be full code. Objective - Vital Signs Vital signs: Vital Signs Temp 98.8 F 06/06/22 13:11 Pulse 85 06/06/22 13:11 Resp 16 06/06/22 13:11 BP 132/60 06/06/22 13:11 Pulse Ox 98 06/06/22 13:11 FiO2 Intake & Output 06/05/22 06/06/22 06/06/22 18:59 06:59 18:59 Intake Total 310 560 Balance 310 560 Weight 84.368 kg 84.368 kg Intake: IV 10 Invasive Line 2 10 Oral 240 Blood Product 310 310 Rc As-1 Unit 310 [id number] Rc As-1 Unit 310 [id number] Other: # Voids 1 1 - Labs CBC & Chem 7: 06/06/22 06:10 06/05/22 10:52 Labs: Abnormal Lab Results - Last 24 Hours (Table) 06/05/22 06/05/22 06/05/22 Range/Units 10:54 16:55 16:55 RBC (3.80-5.40) m/uL Hgb (11.4-16.0) gm/dL Hct (34.0-46.0) % RDW (11.5-15.5) % POC Glucose (mg/dL) (70-110) mg/dL Iron 40 L (50-170) ug/dL % Saturation 11.37 L (12.00-45.00) Troponin I 0.082 H* (0.000-0.034) ng/mL Crossmatch See Detail 06/05/22 06/06/22 06/06/22 Range/Units 19:00 06:10 06:17 RBC 2.27 L (3.80-5.40) m/uL Hgb 6.1 L* (11.4-16.0) gm/dL Hct 19.4 L* (34.0-46.0) % RDW 15.6 H (11.5-15.5) % POC Glucose (mg/dL) 115 H (70-110) mg/dL Iron (50-170) ug/dL % Saturation (12.00-45.00) Troponin I 0.083 H* (0.000-0.034) ng/mL Crossmatch
[2022-06-06 16:00] LABS: Glucose,Whole Blood 123 mg/dL (70-110)
[2022-06-06 16:17] LABS: HCT 28.7 % (34.0-46.0); Hypochromasia Marked; MCH 27.7 pg (25.0-35.0); MCHC 30.9 g/dL (31.0-37.0); MCV 89.9 fL (80.0-100.0); Mean Platelet Volume 7.5; Platelet Count 340 k/uL (150-450); Poikilocytosis Marked; RDW 15.2 % (11.5-15.5); WBC 7.7 k/uL (3.8-10.6)
[2022-06-06 16:21] LABS: HGB 8.9 gm/dL (11.4-16.0)
--- NOTE | 2022-06-06 16:58 | P.DS ---
Providers Date of admission: 06/05/22 13:21 Expected date of discharge: 06/06/22 Attending physician: Aldo Culp MD Consults: 06/05/22 14:34 Consult Physician Routine Consulting Provider: Sy Bennett Consult Reason/Comments: Low Hemoglobin Do you want consulting provider notified?: Yes Primary care physician: Sy Bennett Hospital Course: Patient is a 76-year-old female with PMH of asthma, history of TIA, hypertension, GERD presents the ED for abnormal lab. Of note, patient underwent TAVR on 05/[address] Ba. Her hemoglobin on discharge at that time was 10.2. Patient reports 2 days after her discharge, she experience multiple bouts of BRBPR related to hemorrhoids. She reports excessive amount of blood, multiple times a day. CBC was done on 05/19/2022 which showed hemoglobin of 10.7. After her blood, she experienced 2 more days of BRBPR which she relates to hemorrhoids. Her GI bleed completely resolved after that. Since then, patient reports fatigue, exertional shortness of breath, lightheadedness especially with positional changes. She had blood work done today which showed a hemoglobin of 5.5 in the outpatient setting which prompted her to come to the ED. In the ED, her vital signs are stable. CBC showed hemoglobin of 6.2. Coagulation panel was within normal limits. CMP showed chloride of 109, bicarb of 21, glucose 104. Magnesium was 2.4. Troponin was 0.07 with EKG showing sinus rhythm. Lipase within normal limits. Stool for occult blood negative. Patient is admitted for symptomatic anemia with cardiology consultation. Troponin was trended and repeat troponin was 0.082, 0.083. Cardiology was consulted and recommended no further intervention. Repeat hemoglobin after 1 unit PRBC with 6.2. She was transfused an additional 1 unit of blood. Repeat hemoglobin after blood transfusion was 8.9. Initially, repeat echocardiogram was ordered but patient had informed that she recently had an echocardiogram done on 06/04/2022 at [facility]. Patient was comfortable being discharged home. Patient is advised to follow-up with her PCP and document manager Dr. Bennett within 1-2 days of discharge. Plans to repeat CBC within 3 days to be followed up by her PCP and Dr. Bennett. She is advised to follow-up with Dr. Hillman within 1 week of discharge. Pertinent procedures include chest x-ray. Please refer to progress note for physical exam. Discharge diagnosis: #Symptomatic anemia likely related to resolved lower GI bleed #Elevated troponin likely related to demand ischemia Chronic conditions: Asthma, history of TIA, hypertension, GERD This complex discharge took 35 minutes to complete. Patient Condition at Discharge: Stable Plan - Discharge Summary Discharge Rx Participant: No New Discharge Prescriptions: Continue Montelukast [Singulair] 10 mg PO HS Albuterol Inhaler [Ventolin Hfa Inhaler] 2 puff INHALATION RT-QID PRN PRN Reason: Shortness Of Breath Multivitamins, Thera [Multivitamin (formulary)] 1 tab PO HS Metoprolol Tartrate [Lopressor] 25 mg PO DAILY Fluticasone Nasal [place]mot [Flonase Nasal [place]] 2 spray EA NOSTRIL DAILY PRN PRN Reason: allergies Vitamin B Complex 1 cap PO HS Aspirin 81 mg PO HS Cholecalciferol [Vitamin D3 (25 Mcg = 1000 Iu)] 50 mcg PO HS Metoprolol Tartrate [Lopressor] 12.5 mg PO HS Losartan [Cozaar] 25 mg PO HS Acetaminophen Tab [Tylenol] 650 mg PO Q4HR PRN tab PRN Reason: Fever And/ Or Mild Pain (1-3) Atorvastatin [Lipitor] 10 mg PO HS #30 tab Fluticasone Propion/Salmeterol [Fluticasone-Salmeterol 250-50] 1 puff INHALATION RT-HS Discontinued Clopidogrel [Plavix] 75 mg PO HS Discharge Medication List Montelukast [Singulair] 10 mg PO HS 12/23/18 [History] Albuterol Inhaler [Ventolin Hfa Inhaler] 2 puff INHALATION RT-QID PRN 01/12/20 [History] Cholecalciferol [Vitamin D3 (25 Mcg = 1000 Iu)] 50 mcg PO HS 04/02/22 [History] Fluticasone Nasal [place] [Flonase Nasal [place]] 2 spray EA NOSTRIL DAILY PRN 04/02/22 [History] Losartan [Cozaar] 25 mg PO HS 04/02/22 [History] Metoprolol Tartrate [Lopressor] 12.5 mg PO HS 04/02/22 [History] Metoprolol Tartrate [Lopressor] 25 mg PO DAILY 04/02/22 [History] Multivitamins, Thera [Multivitamin (formulary)] 1 tab PO HS 04/02/22 [History] Vitamin B Complex 1 cap PO HS 04/02/22 [History] Acetaminophen Tab [Tylenol] 650 mg PO Q4HR PRN tab 05/15/22 [Rx] Atorvastatin [Lipitor] 10 mg PO HS #30 tab 05/15/22 [Rx] Aspirin 81 mg PO HS 06/05/22 [History] Fluticasone Propion/Salmeterol [Fluticasone-Salmeterol 250-50] 1 puff INHALATION RT-HS 06/05/22 [History] Follow up Appointment(s)/Referral(s): Sy Bennett MD [Primary Care Provider] - 1-2 days Angel Luis Hillman MD [STAFF PHYSICIAN] - 1 Week Ambulatory/Diagnostic Orders: Complete Blood Count w/diff [LAB.AMB] Time Frame: 3 Days, Location: None Selected Activity/Diet/Wound Care/Special Instructions: Come back to the hospital for chest pain, shortness of breath, dizziness, lightheadedness, palpitations. Discharge Disposition: HOME SELF-CARE
== END 2022-06-06 17:27 | disposition home or self-care (01) ==
LOC: EC 10:24 → 3SCARD 13:21 → INTOOBSV 13:21 → 3SCARD 22:13 → UNDODISIN 06-06 17:27
PROVIDERS: ADMIT Family Medicine; ATTEND Family Medicine
DX: D62 Acute posthemorrhagic anemia (principal); K62.5 Hemorrhage of anus and rectum; J45.909 Unspecified asthma, uncomplicated; K21.9 Gastro-esophageal reflux disease without esophagitis; I10 Essential (primary) hypertension; E78.00 Pure hypercholesterolemia, unspecified; R77.8 Other specified abnormalities of plasma proteins; Z86.73 Personal history of transient ischemic attack (TIA), and cerebral infarction without residual deficits; Z95.2 Presence of prosthetic heart valve; Z79.51 Long term (current) use of inhaled steroids; Z79.899 Other long term (current) drug therapy; Z79.82 Long term (current) use of aspirin; Z79.02 Long term (current) use of antithrombotics/antiplatelets
CPT/HCPCS: 36430 ×2; 99285; 36415; 93005; 86900; 86901; 80053; 82728; 83540; 83550; 83690; 83735; 84484; 85025 ×2; 85027; 85610; 85730; 86850; 86920; 82272; G0378 ×2; P9016 ×2; 96360

== ENCOUNTER → 2022-06-09 | Outpatient (CLI) | payer MEDICARE ==
[2022-06-09 19:08] LABS: African American GFR (CKD) 87.4 (60.0-200.0); BUN/Creat Ratio 10.61 Ratio (12.00-20.00); Blood Urea Nitrogen 8.2 mg/dL (9.0-27.0); Calcium 9.2 mg/dL (8.7-10.3); Carbon Dioxide 21.9 mmol/L (20.0-27.5); Non-African American GFR(CKD) 75.4 (60.0-200.0); Potassium 4.5 mmol/L (3.5-5.5)
[2022-06-11 14:18] LABS: Basophils # (A) 0.04 X 10*3/uL (0.00-0.10); Basophils % (A) 0.6 %; Eosinophils # (A) 0.25 X 10*3/uL (0.04-0.35); Eosinophils % (A) 3.8 %; HCT 29.5 % (37.2-46.3); Immature Grans, Automated 0.5 %; Lymphocytes # (A) 1.54 X 10*3/uL (0.90-5.00); Lymphocytes % (A) 23.3 %; MCH 27.9 pg (27.0-32.0); MCHC 30.5 g/dL (32.0-37.0); MCV 91.3 fL (80.0-97.0); Monocytes # (A) 0.54 X 10*3/uL (0.20-1.00); Monocytes % (A) 8.2 %; NRBC Per 100 WBC 0 /100 WBCS (0.0-0.0); Neutrophils # (A) 4.22 X 10*3/uL (1.80-7.70); Neutrophils % (A) 63.6 %; Platelet Count 260 X 10*3/uL (140-440); RBC 3.23 X 10*6/uL (4.10-5.20); RDW 14.6 % (11.5-14.5); WBC 6.62 X 10*3/uL (4.50-10.00)
== END | disposition home or self-care (01) ==
LOC: LABWHC1 10:50
PROVIDERS: ATTEND Internal Medicine Interventional Cardiology
DX: D64.9 Anemia, unspecified (principal); I10 Essential (primary) hypertension
CPT/HCPCS: 36415; 80048; 85025

== ENCOUNTER → 2022-09-23 | Outpatient (CLI) | payer MEDICARE ==
[2022-09-23 19:53] LABS: HCT 38.2 % (37.2-46.3); HGB 11.9 d/dL (12.0-15.0); MCH 27.4 pg (27.0-32.0); MCHC 31.2 d/dL (32.0-37.0); MCV 87.8 FL (80.0-97.0); Mean Platelet Volume 11.5 FL (9.5-12.2); NRBC Per 100 WBC 0 X 10*3/uL (0.00-0.01); Platelet Count 264 X 10*3/uL (140-440); RBC 4.35 X 10*6/uL (4.10-5.20); RDW 15.5 % (11.5-14.5)
[2022-09-24 05:20] LABS: % Iron Saturation 9.61 (12.00-45.00); Ferritin 44.5 ng/mL (10.0-291.0)
[2022-09-26 11:32] LABS: Reticulocyte % 1.26
== END | disposition home or self-care (01) ==
LOC: LABWHC1 09:40
PROVIDERS: ATTEND Internal Medicine Gastroenterology
DX: D64.9 Anemia, unspecified (principal)
CPT/HCPCS: 36415; 82607; 82728; 82746; 83540; 83550; 85027; 85045

== ENCOUNTER 2022-10-03 06:30 | Day surgery (SDC) | payer MEDICARE ==
[2022-10-01 12:33] VITALS: BMI 33.3
[2022-10-03 06:59] VITALS: RESP 16; TEMP 97.5
[2022-10-03] MEDS ORDERED: LIDOCAINE 1% (10MG/ML) FOR IV START INTRADERMA ONE (07:02)
[2022-10-03] MEDS: LACTATED RINGERS 1,000 ML IV SCH ×2 (07:07→07:49)
[2022-10-03] MEDS ORDERED: PROPOFOL 10 MG/ML 20 ML VIAL IV ONE (07:53)
[2022-10-03] MEDS ORDERED: LIDOCAINE 2% INJ 20 MG/ML (2 ML VIAL) ONE (07:53)
--- NOTE | 2022-10-03 08:13 | P.PCN ---
Date of Procedure: 10/03/22 Procedure(s) Performed: Brief history: Patient is a pleasant 76-year-old white female scheduled for an elective upper endoscopy as well as colonoscopy as a part of evaluation of iron deficiency anemia and intermittent rectal bleeding. Procedure performed: Esophagogastroduodenoscopy with biopsy Colonoscopy Preoperative diagnosis: Iron deficiency anemia and intermittent rectal bleeding Anesthesia: [facility] Procedure: After informed consent was obtained from the patient was brought into the endoscopy unit and IV sedation was administered by anesthesia under continuous monitoring. Initially upper endoscopy was done. The Olympus GF 160 video endoscope was inserted inserted into the mouth and esophagus intubated without any difficulty and was gradually advanced into the stomach and duodenum and carefully examined. The bulb and second part of the duodenum appeared normal. The scope was then withdrawn into the stomach adequately insufflated with air and upon careful examination the antrum and body, cardia and fundus appeared normal. The scope was then withdrawn into the esophagus. The GE junction was located at 35 cm to the incisors. Small hiatal hernia noted. There was early distal esophageal stricture identified. There was erythema with a couple of erosions in the distal esophagus consistent with LA grade B reflux esophagitis.. Rest of the esophagus appeared normal. Patient tolerated the procedure well. At this time the patient continued to remain sedation. Initial digital rectal examination was normal. Olympus CF 160 video colonoscope was then inserted into the rectum and gradually advanced to the cecum without any difficulty. Careful examination was performed as the scope was gradually being withdrawn. The prep was excellent. The cecum, ascending colon, transverse colon, descending colon, sigmoid colon and rectum appeared normal. Diffuse scattered diverticulosis. Retroflexion was performed in the rectum and no lesions were noted. Patient tolerated the procedure well. Impression: 1. Upper endoscopy revealed small hiatal hernia, early distal esophageal s tricture and LA grade B reflux esophagitis 2. Colonoscopy revealed diffuse diverticulosis but no evidence of colorectal neoplasia Recommendations: Findings of this examination were discussed with the patient as well as her family. She was advised to follow with the biopsy results. Continue with a high-fiber diet and take fiber supplements. Monitor CBC periodically
[2022-10-03 08:38] VITALS: BP 131/78; PULSE 78
== END 2022-10-03 08:50 | disposition home or self-care (01) ==
LOC: ORWHC2ENDO 06:30
PROVIDERS: ATTEND Internal Medicine Gastroenterology
DX: K29.80 Duodenitis without bleeding (principal); K21.00 Gastro-esophageal reflux disease with esophagitis, without bleeding; K22.2 Esophageal obstruction; K44.9 Diaphragmatic hernia without obstruction or gangrene; K57.30 Diverticulosis of large intestine without perforation or abscess without bleeding; D50.9 Iron deficiency anemia, unspecified; I10 Essential (primary) hypertension; E78.5 Hyperlipidemia, unspecified; E23.2 Diabetes insipidus; J45.909 Unspecified asthma, uncomplicated; Z86.73 Personal history of transient ischemic attack (TIA), and cerebral infarction without residual deficits; Z79.51 Long term (current) use of inhaled steroids; Z79.899 Other long term (current) drug therapy; Z91.048 Other nonmedicinal substance allergy status
CPT/HCPCS: 45378; 43239; J2704; J2001; 88305

== ENCOUNTER → 2022-11-13 | Outpatient (CLI) | payer MEDICARE ==
[2022-11-13 10:51] LABS: HCT 36.1 % (37.2-46.3); HGB 11.8 d/dL (12.0-15.0); MCH 28.9 pg (27.0-32.0); MCHC 32.7 d/dL (32.0-37.0); MCV 88.3 FL (80.0-97.0); Mean Platelet Volume 10.6 FL (9.5-12.2); NRBC Per 100 WBC 0 X 10*3/uL (0.00-0.01); Platelet Count 246 X 10*3/uL (140-440); RBC 4.09 X 10*6/uL (4.10-5.20); RDW 14.1 % (11.5-14.5); WBC 6.65 X 10*3/uL (4.50-10.00)
== END | disposition home or self-care (01) ==
LOC: LABWHC1 07:00
PROVIDERS: ATTEND Nurse Practitioner Family
DX: D64.9 Anemia, unspecified (principal); Z83.49 Family history of other endocrine, nutritional and metabolic diseases
CPT/HCPCS: 36415; 85027

== ENCOUNTER → 2023-04-17 | Outpatient (CLI) | payer MEDICARE ==
[2023-04-17 14:33] LABS: Basophils # (A) 0.04 X 10*3/uL (0.00-0.10); Basophils % (A) 0.6 %; Eosinophils # (A) 0.19 X 10*3/uL (0.04-0.35); Eosinophils % (A) 2.7 %; HGB 12.3 g/dL (12.0-15.0); Lymphocytes # (A) 1.74 X 10*3/uL (0.90-5.00); Lymphocytes % (A) 24.6 %; MCH 30.1 pg (27.0-32.0); MCHC 33.2 g/dL (32.0-37.0); MCV 90.5 FL (80.0-97.0); Monocytes # (A) 0.59 X 10*3/uL (0.20-1.00); Monocytes % (A) 8.3 %; NRBC Per 100 WBC 0 X 10*3/uL (0.00-0.01); Neutrophils # (A) 4.48 X 10*3/uL (1.80-7.70); Neutrophils % (A) 63.2 %; Platelet Count 281 X 10*3/uL (140-440); RBC 4.09 X 10*6/uL (4.10-5.20); RDW 12.9 % (11.5-14.5); WBC 7.08 X 10*3/uL (4.50-10.00)
[2023-04-17 14:41] LABS: ALT 23 U/L (8-44); AST 23 U/L (13-35); Albumin 4.2 g/dL (3.8-4.9); Albumin/Globulin Ratio 1.45 Ratio (1.60-3.17); Alkaline Phosphatase 66 U/L (41-126); BUN/Creat Ratio 16.38 Ratio (12.00-20.00); Blood Urea Nitrogen 13.1 mg/dL (9.0-27.0); Carbon Dioxide 24.4 mmol/L (21.6-31.8); Chloride 106 mmol/L (96-109); Globulin 2.9 g/dL (1.6-3.3); Glucose 100 mg/dL (70-110); Potassium 4.7 mmol/L (3.5-5.5); Sodium 141 mmol/L (135-145); Total Bilirubin 0.4 mg/dL (0.3-1.2); Total Protein 7.1 g/dL (6.2-8.2)
== END | disposition home or self-care (01) ==
LOC: LABWHC1 10:11
PROVIDERS: ATTEND Nurse Practitioner Acute Care
DX: Z98.890 Other specified postprocedural states (principal)
CPT/HCPCS: 36415; 80053; 85025

== ENCOUNTER → 2023-04-17 | Outpatient (CLI) | payer MEDICARE ==
--- NOTE | 2023-04-18 14:49 | BD ---
EXAMINATION TYPE: Axial Bone Density DATE OF EXAM: 04/17/2023 CLINICAL HISTORY: 77 years old Female. ICD-10 CODE: Z78.0 ASYMPTOMATIC MENOPAUSAL STATE Height: 61" Weight: 197.2lbs FRAX RISK QUESTIONS: Alcohol (3 or more units per day): No Family History (Parent hip fracture): No Glucocorticoids (More than 3mos): No (Ex: prednisone, prednisolone, methylprednisolone, dexamethasone, and hydrocortisone). History of Fracture in Adulthood: Yes Secondary Osteoporosis: 1. Type 1 Diabetes: No 2. Hyperthyroidism: No 3. Menopause before 45: No 4. Malnutrition: No 5. Chronic liver disease: No Rheumatoid Arthritis: No Current Tobacco Use: No RISK FACTORS HISTORY OF: Hip Fracture (Right/Left): Right side When: 2016 Spine Fracture: No History of Wrist Fracture: No Surgery to Spine/Hip(right/left)/Wrist (right/left): No Family History of Osteoporosis: No Active: Semi-active Diet low in dairy products/other sources of calcium: Yes Lost more than 2 inches in height since high school: Yes Frequent falls: No Poor Health: No Hyperparathyroidism: No Adrenal Insufficiency: No MEDICATIONS: Prednisone or other steroids: No Thyroid Medications:No Osteoporosis Medications: No Additional Medications: Multivitamin and Vit D3 Additional History: N/A EXAM MEASUREMENTS: Bone mineral densitometry was performed using the [employer] System. Bone mineral density as measured about the Lumbar spine is: ----- L1-L4(G/cm2): 1.257 T Score Values are as follows: ----- L1: 0.5 ----- L2: 0.0 ----- L3: 1.9 ----- L4: 0.3 ----- L1-L4: 0.6 Z Score Values are as follows: ----- L1: 1.5 ----- L2: 0.9 ----- L3: 2.8 ----- L4: 1.3 ----- L1-L4: 1.6 Bone mineral density has: increased 1.8% since study of: 01/03/2021 Bone mineral density about the L hip (g/cm2): 0.796 T Score values are as follows: -----L Neck: -1.7 -----L Total: -1.7 Z Score values are as follows: -----L Neck: -0.2 -----L Total: -0.5 Bone mineral density has: decreased -8.2% since study of: 01/03/2021 FRAX%s: The graph provided illustrates a 25.7% chance for a major osteoporotic fx and a 6.1% chance f or the hips probability for fx in 10 years time. IMPRESSION: Osteopenia (T Score between -2.5 and -1). There is slightly increased risk of fracture and the patient may be considered for treatment. Re-Screen 2-5 years. NOTE: T-SCORE=SD OF THE YOUNG ADULT MEAN.
--- NOTE | 2023-04-19 18:06 | MM ---
Reason for Exam: Screening (asymptomatic). Last mammogram was performed 1 year(s) and 1 month(s) ago. Indicated Problems: Pain of the left side (Global) for 3 Month(s). Patient History: Menarche at age 13. First Full-Term at age 25. Hysterectomy at age 41. Postmenopausal. Hormonal Contraceptives for 9 years from age 21 until age 30. Benign Cyst Aspiration on the right side. Benign Cyst Aspiration on the left side. 1996, Excisional Biopsy on the Right side. 01/12/2019, Benign Core Biopsy on the right side. 01/12/2019, Benign Core Biopsy on the right side. 06/02/2014, Benign Core Biopsy on the left side. 06/02/2014, US discontinued breast bx LT on the left side. Daughter had breast cancer, age 38. Mother had breast cancer, age 70. Risk Values: Zeinab 5 year model risk: 10.5%. NCI Lifetime model risk: 20.1%. Prior Study Comparison: 02/07/2020 Bilateral Diagnostic Mammogram, [facility]. 02/20/2021 Bilateral Diagnostic Mammogram, [facility]. 03/24/2022 Bilateral MG 3D diag mammo w/cad LINDA, [facility]. Tissue Density: The breast tissue is heterogeneously dense. This may lower the sensitivity of mammography. Findings: Analyzed By CAD. The pattern is symmetrical. Multiple benign-appearing round calcifications are present. Core markers within the bilateral breasts. No significant interval changes are evident. No suspicious groups of microcalcifications, spiculated or lobular masses, architectural distortion or other secondary signs of malignancy are mammographically apparent. Overall Assessment: Benign, BI-RAD 2 Management: Screening Mammogram of both breasts in 1 year. A negative mammogram report should not preclude additional follow up of suspicious palpable abnormalities. Patient should continue monthly self breast exam. A clinical breast exam by your physician is recommended on an annual basis and results should be correlated with mammographic findings. Electronically signed and approved by: Nelson Galarza D.O. Radiologis
== END | disposition home or self-care (01) ==
LOC: RADMAMWWP 09:09
PROVIDERS: ATTEND Family Medicine
DX: Z12.31 Encounter for screening mammogram for malignant neoplasm of breast (principal); M85.852 Other specified disorders of bone density and structure, left thigh; Z78.0 Asymptomatic menopausal state; Z80.3 Family history of malignant neoplasm of breast
CPT/HCPCS: 77063; 77067; 77080

== ENCOUNTER → 2023-05-04 | Outpatient (CLI) | payer MEDICARE ==
--- NOTE | 2023-05-05 07:38 | USB ---
Indicated Problems: Non-bloody discharge of the right side (Clear) for 1 Year(s). Pain of the left side (Focal) for 3 Month(s) : UOQ. Patient History: Menarche at age 13. First Full-Term at age 25. Hysterectomy at age 41. Postmenopausal. Hormonal Contraceptives for 9 years from age 21 until age 30. Benign Cyst Aspiration on the right side. Benign Cyst Aspiration on the left side. 1996, Excisional Biopsy on the Right side. 01/12/2019, Benign Core Biopsy on the right side. 01/12/2019, Benign Core Biopsy on the right side. 06/02/2014, Benign Core Biopsy on the left side. 06/02/2014, US discontinued breast bx LT on the left side. Daughter had breast cancer, age 38. Mother had breast cancer, age 70. Risk Values: Zeinab 5 year model risk: 10.5%. NCI Lifetime model risk: 20.1%. Technique: Method: Whole Breast Handheld. Doppler: Color. LPO/RPO. Prior Study Comparison: 02/20/2021 Bilateral Diagnostic Mammogram, [facility]. 03/24/2022 Bilateral MG 3D diag mammo w/cad LINDA, [facility]. 04/17/2023 Bilateral MG 3D screening mammo w/cad, [facility]. Findings: The whole breast of both breasts, the axilla of both breasts and the retroareolar of both breasts were scanned. Bilateral simple cysts as well as a few cysts with internal debris. Prominent ducts with internal debris noted as well. No distinct solid mass. Overall Assessment: Probably benign, BI-RAD 3 Management: Diagnostic Breast Ultrasound of both breasts in 6 months. A clinical breast exam by your physician is recommended on an annual basis and results should be correlated with mammographic findings. This exam should not preclude additional follow-up of suspicious palpable abnormalities. Results were given to the patient verbally at the time of exam. Electronically signed and approved by: Choco Stover M.D. Radiologis
== END | disposition home or self-care (01) ==
LOC: RADUSWWP 08:09
PROVIDERS: ATTEND Family Medicine
DX: N60.01 Solitary cyst of right breast (principal); N60.02 Solitary cyst of left breast; N64.52 Nipple discharge; Z78.0 Asymptomatic menopausal state; Z80.3 Family history of malignant neoplasm of breast

== ENCOUNTER → 2023-07-07 | Outpatient (CLI) | payer MEDICARE ==
[2023-07-07 15:58] LABS: HCT 36.1 % (37.2-46.3); HGB 11.8 g/dL (12.0-15.0); MCH 30.1 pg (27.0-32.0); MCHC 32.7 g/dL (32.0-37.0); MCV 92.1 FL (80.0-97.0); Mean Platelet Volume 10.2 FL (9.5-12.2); NRBC Per 100 WBC 0 X 10*3/uL (0.00-0.01); Platelet Count 253 X 10*3/uL (140-440); RBC 3.92 X 10*6/uL (4.10-5.20); RDW 12.9 % (11.5-14.5); WBC 5.92 X 10*3/uL (4.50-10.00)
[2023-07-07 16:37] LABS: % Iron Saturation 26.15 (12.00-45.00)
== END | disposition home or self-care (01) ==
LOC: LABWHC1 09:29
PROVIDERS: ATTEND Internal Medicine Gastroenterology
DX: D64.9 Anemia, unspecified (principal); Z83.49 Family history of other endocrine, nutritional and metabolic diseases
CPT/HCPCS: 36415; 82728; 83540; 83550; 85027

== ENCOUNTER → 2023-11-05 | Outpatient (CLI) | payer MEDICARE ==
--- NOTE | 2023-11-05 10:13 | USB ---
Reason for Exam: Follow-up at short interval from prior study. Patient History: Menarche at age 13. First Full-Term at age 25. Hysterectomy at age 41. Postmenopausal. Hormonal Contraceptives for 9 years from age 21 until age 30. Benign Cyst Aspiration on the right side. Benign Cyst Aspiration on the left side. 1996, Excisional Biopsy on the Right side. 01/12/2019, Benign Core Biopsy on the right side. 01/12/2019, Benign Core Biopsy on the right side. 06/02/2014, Benign Core Biopsy on the left side. 06/02/2014, US discontinued breast bx LT on the left side. Daughter had breast cancer, age 38. Mother had breast cancer, age 70. Risk Values: Zeinab 5 year model risk: 10.5%. NCI Lifetime model risk: 20.1%. Technique: Method: Targeted. Prior Study Comparison: 02/07/2020 Bilateral Diagnostic Ultrasound, [facility]. 02/20/2021 Bilateral Diagnostic Mammogram, [facility]. 03/24/2022 Bilateral MG 3D diag mammo w/cad LINDA, [facility]. 04/17/2023 Bilateral MG 3D screening mammo w/cad, [facility]. 05/04/2023 Bilateral US breast BILAT, [facility]. Findings: The axilla of both breasts and the retroareolar of both breasts were scanned. Hypoechoic elongated lesion seen in right breast 4:00 position 2 cm from the nipple is unchanged dating back to 2019 and measures 8 x 4 mm. Otherwise are scattered cysts seen within the right breast measuring up to 1.3 x 0.7 cm at the 9:00 position. Within the left breast are scattered cysts noted measuring up to 0.7 cm the left 1:00 position 2 cm from the nipple. No solid left breast lesions are seen.. Overall Assessment: Benign, BI-RAD 2 Management: Diagnostic Mammogram of both breasts in 6 months. A clinical breast exam by your physician is recommended on an annual basis and results should be correlated with mammographic findings. This exam should not preclude additional follow-up of suspicious palpable abnormalities. Results were given to the patient verbally at the time of exam. Electronically signed and approved by: Choco Stover M.D. Radiologis
== END | disposition home or self-care (01) ==
LOC: RADUSWWP 09:19
PROVIDERS: ATTEND Family Medicine
DX: R92.8 Other abnormal and inconclusive findings on diagnostic imaging of breast (principal); Z78.0 Asymptomatic menopausal state; Z80.3 Family history of malignant neoplasm of breast

== ENCOUNTER → 2024-03-11 | Outpatient (CLI) | payer MEDICARE ==
--- NOTE | 2024-03-11 10:56 | XR ---
EXAMINATION TYPE: XR knee 4V RT DATE OF EXAM: 03/11/2024 9:42 AM COMPARISON: CLINICAL INDICATION: Female, 78 years old with history of M25.561 RIGHT KNEE PAIN; PHH, pain TECHNIQUE: XR knee 4V RT 3 views submitted. FINDINGS: No evidence of any acute osseous pathology, soft tissue swelling, or joint effusion is no rachele. Tricompartmental osteophyte formation involving the femoral condyles, tibial plateau and patella . Mild joint space narrowing. IMPRESSION: 1. No acute osseous pathology. 2. 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 [facility], , 03/11/2024 10:54 AM
[2024-03-11 15:43] LABS: Basophils # (A) 0.04 X 10*3/uL (0.00-0.10); Basophils % (A) 0.6 %; Eosinophils # (A) 0.14 X 10*3/uL (0.04-0.35); Eosinophils % (A) 1.9 %; HCT 36.6 % (37.2-46.3); HGB 12.3 g/dL (12.0-15.0); Lymphocytes # (A) 1.49 X 10*3/uL (0.90-5.00); Lymphocytes % (A) 20.7 %; MCH 29.9 pg (27.0-32.0); MCHC 33.6 g/dL (32.0-37.0); MCV 89.1 FL (80.0-97.0); Monocytes # (A) 0.52 X 10*3/uL (0.20-1.00); Monocytes % (A) 7.2 %; NRBC Per 100 WBC 0 X 10*3/uL (0.00-0.01); Neutrophils % (A) 69.5 %; Platelet Count 303 X 10*3/uL (140-440); RBC 4.11 X 10*6/uL (4.10-5.20); RDW 12.9 % (11.5-14.5)
[2024-03-11 15:59] LABS: % Iron Saturation 20.64 (12.00-45.00); ALT 19 U/L (8-44); AST 21 U/L (13-35); Albumin 4.4 g/dL (3.8-4.9); Albumin/Globulin Ratio 1.69 Ratio (1.60-3.17); Alkaline Phosphatase 66 U/L (41-126); BUN/Creat Ratio 14.62 Ratio (12.00-20.00); Blood Urea Nitrogen 11.7 mg/dL (9.0-27.0); Calcium 9.8 mg/dL (8.7-10.3); Carbon Dioxide 21.4 mmol/L (21.6-31.8); Chloride 108 mmol/L (96-109); Chol/HDL Ratio 2.23 Ratio; Ferritin 93.2 ng/mL (10.0-291.0); Globulin 2.6 g/dL (1.6-3.3); Glucose 106 mg/dL (70-110); Iron 58 UG/DL (50-170); LDL Cholesterol,Calculated 45.6 mg/dL (0.0-131.0); Magnesium 2.1 mg/dL (1.5-2.4); Potassium 4.4 mmol/L (3.5-5.5); Sodium 143 mmol/L (135-145); Total Bilirubin 0.5 mg/dL (0.3-1.2); Total Iron Binding Capacity 281 UG/DL (228-460); Uric Acid 5.5 mg/dL (2.9-7.7)
== END | disposition home or self-care (01) ==
LOC: LABWHC1 09:18
PROVIDERS: ATTEND Internal Medicine
DX: I10 Essential (primary) hypertension (principal); N64.4 Mastodynia; M85.80 Other specified disorders of bone density and structure, unspecified site; M25.561 Pain in right knee
CPT/HCPCS: 36415; 80053; 80061; 82306; 82728; 83540; 83550; 83735; 84443; 84550; 85025

== ENCOUNTER → 2024-05-31 | Outpatient (CLI) | payer MEDICARE ==
--- NOTE | 2024-05-31 08:50 | MM ---
Reason for Exam: Follow-up at short interval from prior study. Last mammogram was performed 1 year(s) and 1 month(s) ago. Patient History: Menarche at age 13. First Full-Term at age 25. Hysterectomy at age 41. Postmenopausal. Hormonal Contraceptives for 9 years from age 21 until age 30. Benign Cyst Aspiration on the right side. Benign Cyst Aspiration on the left side. 1996, Excisional Biopsy on the Right side. 01/12/2019, Benign Core Biopsy on the right side. 01/12/2019, Benign Core Biopsy on the right side. 06/02/2014, Benign Core Biopsy on the left side. 06/02/2014, US discontinued breast bx LT on the left side. Daughter had breast cancer, age 38. Mother had breast cancer, age 70. Risk Values: Zeinab 5 year model risk: 10.4%. NCI Lifetime model risk: 18.9%. Prior Study Comparison: 02/20/2021 Bilateral Diagnostic Mammogram, [facility]. 03/24/2022 Bilateral MG 3D diag mammo w/cad LINDA, [facility]. 04/17/2023 Bilateral MG 3D screening mammo w/cad, [facility]. Tissue Density: The breasts are heterogeneously dense, which may obscure small masses. Analyzed By CAD. Overall Assessment: Benign, BI-RAD 2 Management: Screening Mammogram of both breasts in 1 year. Electronically signed and approved by: Albert Tenorio DO
== END | disposition home or self-care (01) ==
LOC: RADMAMWWP 07:52
PROVIDERS: ATTEND Internal Medicine
DX: R92.8 Other abnormal and inconclusive findings on diagnostic imaging of breast (principal); R92.333 Mammographic heterogeneous density, bilateral breasts; Z78.0 Asymptomatic menopausal state; Z80.3 Family history of malignant neoplasm of breast
CPT/HCPCS: 77062; 77066